=== PATIENT | male | born 1960 | race Caucasian/White ===

== ENCOUNTER → 2018-08-17 15:05 | Outpatient (CLI) | payer OTHER, SELFPAY ==
--- NOTE | 2018-08-17 15:10 | VDLE_ITS ---
Reason For Study: Pain/edema R/O DVT RIGHT GSV is normal. CFV is compressible, spontaneous, phasic, competent and demonstrates normal augmentation. FV is compressible, spontaneous, phasic, competent and demonstrates normal augmentation. POP V is compressible, spontaneous, phasic, competent and demonstrates normal augmentation. T/P Trunk is compressible. PTV is compressible. RT PerV is compressible. Procedure Exam performed in department. A preliminary report was called and/or faxed to Dr. Arriola. Interpretation Summary There is no evidence of right lower extremity deep vein thrombosis. Right greater saphenous vein appears patent and compressible segmentally. Ordering Physician: Donna Arriola Referring Physician: Gwyn Nguyễn Performed By: Lupe Fry RVT
== END ==
PROVIDERS: Family Provider Family Medicine; PCP Family Medicine; Referring Provider Podiatrist; Visit Provider Podiatrist
DX: I82.401 Acute embolism and thrombosis of unspecified deep veins of right lower extremity (principal)
CPT/HCPCS: 93971

== ENCOUNTER → 2019-03-16 10:49 | Outpatient (CLI) | payer OTHER, SELFPAY ==
--- NOTE | 2019-03-16 17:41 | NEURO ---
NCS and/or EMG Patient Report HPI: Patient is a 58-year-old male who presented with the pain in the left elbow as well as numbness and tingling in his left hand fingers which has been noticed by patient for about a month . Patient is hptva-sctv-qjvicqui. 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 Patient sleeps on left side. Physical Exam: No significant tenderness noted at left wrist. Mild soreness at left elbow noted. No significant weakness or sensory deficit noted in left hand fingers or left hand muscles. Findings: 1. Normal nerve conduction studies of left median sensory and motor nerves. 2. Normal Nerve conductions studies of left ulnar sensory and motor nerves. 3. Normal needle examination of right and left upper extremities. Impression: 1. Normal nerve conduction studies and EMG of the left upper extremity. Recommendation: 1. Patient recommended to wear left elbow and hand splints as much as possible. 2. Patient recommended to avoid repetitive left hand movements, heavy lifting as well as sleeping or leaning on left elbow. 3. Patient recommended to keep left arm straight during sleep.
== END ==
PROVIDERS: Family Provider Family Medicine; PCP Family Medicine; Referring Provider Family Medicine; Visit Provider Family Medicine
DX: R20.0 Anesthesia of skin (principal); R20.2 Paresthesia of skin
CPT/HCPCS: 95886; 95909

== ENCOUNTER 2019-06-11 05:26 | Emergency (ER) | payer BC, SELFPAY ==
[2019-06-11 05:27] VITALS: BP 160/110; PULSE 73; RESP 16; TEMP 36.8; O2SAT 98; BMI 42.3
--- NOTE | 2019-06-11 05:51 | CT_ITS ---
HISTORY: RIGHT FLANK PAIN x3 DAYSHX-KIDNEY STONES ADDITIONAL HISTORY: None provided. TECHNIQUE: CT images were obtained of the abdomen and pelvis without IV contrast. Enteric contrast was not given. Number of images including paperwork: 560. A radiation dose optimization technique was used for this scan. COMPARISON: None FINDINGS: Evaluation of the abdominopelvic organs is limited in the absence of contrast. LOWER THORAX: No consolidation or pleural effusion. Dependent atelectasis. 4 x 9 mm subpleural left lower lobe lung nodule. Trace pericardial fluid. LIVER: No concerning focal lesion. GALLBLADDER: No radiopaque calculi. BILE DUCTS: No significant biliary dilatation. SPLEEN: Unremarkable. PANCREAS: Mildly atrophic ADRENAL GLANDS: Unremarkable. KIDNEYS/URETERS: Mild right hydronephrosis secondary to a 3 mm ureteropelvic junction calculus. Nonobstructing 1-3 mm bilateral renal calculi. BOWEL: No bowel obstruction. No significant bowel wall thickening. No localized inflammation. APPENDIX: No evidence of appendicitis. FREE FLUID: No significant free fluid. FREE AIR: None. LYMPH NODES: No pathologic appearing adenopathy. PERITONEUM, RETROPERITONEUM AND MESENTERY: Otherwise unremarkable. VASCULATURE: Unremarkable as imaged. ABDOMINAL WALL: Unremarkable. PELVIS: Unremarkable bladder. OSSEOUS AND SOFT TISSUE STRUCTURES: No acute skeletal findings. Degenerative changes. CT/Abdomen/Pelvis without Cont IMPRESSION: 1. Obstructing right ureteropelvic junction calculus with mild hydronephrosis. 2. Nonobstructing bilateral renal calculi. Individualized dose optimization techniques were used for this CT. at 0647 Reported and signed by: Amber Sandhu MD Electronically Signed: Amber Sandhu MD at 6:47 EST Tel , Service support ,
[2019-06-11 05:58] LABS: Absolute Lymphocyte Count 1.68 X10^3/uL (0.83-4.51); Absolute Neutrophil Count 3.5 X10^3/uL (2.0-7.7); Basophil# 0.06 X10^3/uL; Basophil% 0.9 % (0-1); Eosinophil# 0.23 X10^3/uL; Eosinophils% 3.6 % (0-5); Hematocrit 49.6 % (40-54); Hemoglobin 16.1 g/dL (13.0-16.5); Lymphocyte # 1.68 X10^3/ul (4.0); Lymphocyte % 26.5 % (19-41); Mean Corp Hgb Conc 32.5 g/dL (32-36); Mean Corpuscular Hgb 29.9 pg (27.0-32.0); Mean Corpuscular Volume 92.2 fL (80-94); Mean Platelet Vol. 9.4 fl (6.2-12.0); Monocyte# 0.87 X10^3/uL; Monocyte% 13.7 % (0-10); NRBC Flagged by Analyzer 0 % (0-5); Neutrophil # 3.47 X10^3/uL (2.7-7.7); Neutrophil % 54.8 % (47-70); Platelet Count 211 K/mm3 (150-450); RBC Distribution Width CV 13.6 % (11.6-14.6); RBC Distribution Width SD 46.3 fl (35.1-43.9); Red Blood Count 5.38 M/mm3 (4.6-6.2); White Blood Count 6.3 K/mm3 (4.4-11.0)
--- NOTE | 2019-06-11 06:05 | ED.DCSUM_ITS ---
- ER Visit Summary Date of Service: 06/11/19 Chief Complaint: Flank pain History of Present Illness: The patient is a 58 M who presents with right flank pain that is been getting progressively worse over the past 5 days. Patient states this feels similar to prior kidney stone. Patient describes the pain is sharp. Patient states pain is localized to the right flank. Patient states nothing makes it better or worse. Patient admits to nausea but denies any vomiting. Patient also admits to neck and back pain. Patient denies any fevers or chills. Patient denies any dysuria or hematuria. Physical Examination: Vital signs are stable. Patient is afebrile. Patient is in no acute distress. Oral mucosa is pink and moist. Neck is supple. Trachea is midline. There is no JVD. Heart was regular rate and rhythm. Lungs are clear and equal bilaterally. Abdomen is soft. Bowel sounds are normal. There is no tenderness. There is some mild right CVA tenderness. There is no rebound or guarding noted. Cranial nerves II through XII are intact. There are no focal motor or sensory deficits noted. Test Results: CBC and basic metabolic profile were obtained and were essentially within normal limits. CT scan of the abdomen and pelvis was obtained. There is a 3 mm obstructing stone at the right ureteropelvic junction. There is mild hydronephrosis. This was interpreted by the radiologist and myself. Urinalysis was ordered and does not show any evidence of urinary tract infection.. Emergency Department Course and Treatment: Patient was given IV fluids, Toradol, and Zofran. Patient was feeling better on reevaluation. Patient was given a prescription for a short course of [place]. Patient was instructed to follow-up with Dr. Arzate in 3 to 5 days. Patient understands and is agreeable with the plan. All questions were answered. Disposition: Discharge home Impression: Right ureteral calculus This note was generated with Sendbloom dictation software. It may contain incorrect words, spelling, and punctuation that were not noted in review of the chart prior to signing ED Disposition - Plan for ED Patient: Disposition: Home or Assisted Living Diagnosis: Right ureteral calculus Instructions: KIDNEY STONE w/ Colic Prescriptions: Hydrocodone Bitart/Apap 5-325 [[place] 5MG-325MG] 1 tab PO Q6H PRN PRN 3 Days #10 tab PRN Reason: Pain Prescription Printed Referrals: Skyler Arzate MD [STAFF PHYSICIAN] - 3-5 Days Gwyn Nguyễn MD [Primary Care Provider] - 5-7 Days
[2019-06-11] MEDS: Ketorolac 30 MG/ML Syringe IV (06:12)
[2019-06-11] MEDS: Ondansetron 4 MG/2 ML Vial IV (06:12)
[2019-06-11] MEDS: 0.9% Normal Saline 1,000 ML 250 ML IV (06:12)
[2019-06-11 06:26] LABS: Anion Gap 6 (5-15); BUN 25 mg/dL (7-18); Calcium,Total 9.2 mg/dL (8.5-10.1); Chloride 103 mmol/L (98-107); EST Glomerular Filtration Rate 82 mL/min (>60); Est Glom Filt Rate - Afr Amer 99 mL/min (>60); Glucose 112 mg/dL (74-106); Potassium 4.3 mmol/L (3.5-5.1); Sodium Level 140 mmol/L (136-145)
[2019-06-11 07:07] LABS: Bacteria 0 SEEN /hpf (None Seen); Squamous Epithelial Cells - UA 0 SEEN /hpf (0-5); White Blood Cells 0 SEEN /hpf (0-5)
[2019-06-11 07:22] LABS: Color, Urine Yellow (Yellow); Glucose, Dipstick Normal (Normal); Ketone-Dipstick Negative (Negative); Leukocyte Esterase-Dipstick Negative /ul (Negative); Nitrite-Dipstick Negative (Negative); Occult Blood-Urine 150 /ul (Negative); Protein-Dipstick Negative (Negative); Specific Gravity, Urine 1.015 (1.002-1.030); Urine Bilirubin Dipstick Negative (Negative); Urine Clarity Clear (Clear); Urine Urobilinogen Normal (Normal)
[2019-06-11 07:30] VITALS: RESP 18
[2019-06-11 07:39] LABS: Mucous, Urine 1+ /hpf (<or=2+); Red Blood Cells-Urine 0-5 SEEN /hpf (0-5)
== END 2019-06-11 07:46 | disposition home or self-care (01) ==
PROVIDERS: Emergency Provider Emergency Medicine; PCP Family Medicine
DX: N13.2 Hydronephrosis with renal and ureteral calculous obstruction (principal); Z87.442 Personal history of urinary calculi; I10 Essential (primary) hypertension; F41.9 Anxiety disorder, unspecified
CPT/HCPCS: 74176; 80048; 81001; 85025; 96361; 96374; 96375; 99284; J7030; A4216; J2405

== ENCOUNTER 2019-06-13 13:35 | Emergency (ER) | payer BC, SELFPAY ==
[2019-06-13 13:35] VITALS: BP 146/89; PULSE 101; RESP 16; TEMP 36.8; O2SAT 96; BMI 42.0
--- NOTE | 2019-06-13 14:36 | RAD_ITS ---
STUDY: X-RAY - ABDOMEN/PELVIS REASON FOR EXAM: Male, 58 years old. Abdominal pain, previous kidney stones. TECHNIQUE: Single AP view of the abdomen / pelvis. COMPARISON: None. FINDINGS: Normal visualized lung bases. There is a moderate amount of colonic fecal material. There is a 3.2 mm rounded calcification overlying the transverse process of the right L3 vertebrae. A mid ureteral calculus should be ruled out. There are calcified phleboliths in the pelvis. There are diffuse degenerative changes of the visualized lumbar spine. Mild dextroscoliosis. RAD/Abdomen Single View (Portable) IMPRESSION: Findings suggestive of a 3.2 mm calculus in the midportion of the right ureter. Electronically Signed: Baldomero Harrison, at 15:21 EST , Service support ,
[2019-06-13] MEDS: Ondansetron 4 MG/2 ML Vial IV (14:45)
[2019-06-13] MEDS: 0.9% Normal Saline 1,000 ML 1000 ML IV (14:46)
[2019-06-13] MEDS: Morphine 4 MG/ML Syringe IV (14:48)
[2019-06-13] MEDS: Ketorolac 15 MG/ML Vial IV (14:48)
[2019-06-13 14:56] LABS: Bacteria 0 SEEN /hpf (None Seen); Mucous, Urine 0 SEEN /hpf (<or=2+); Red Blood Cells-Urine 0 SEEN /hpf (0-5); Squamous Epithelial Cells - UA 0 SEEN /hpf (0-5); White Blood Cells 0 SEEN /hpf (0-5)
[2019-06-13 15:02] LABS: Absolute Lymphocyte Count 0.65 X10^3/uL (0.83-4.51); Absolute Neutrophil Count 8.2 X10^3/uL (2.0-7.7); Basophil# 0.05 X10^3/uL; Basophil% 0.5 % (0-1); Hematocrit 50.9 % (40-54); Hemoglobin 16.5 g/dL (13.0-16.5); Lymphocyte # 0.65 X10^3/ul (4.0); Lymphocyte % 6.4 % (19-41); Mean Corp Hgb Conc 32.4 g/dL (32-36); Mean Corpuscular Hgb 29.7 pg (27.0-32.0); Mean Corpuscular Volume 91.5 fL (80-94); Mean Platelet Vol. 9.9 fl (6.2-12.0); Monocyte% 10.8 % (0-10); NRBC Flagged by Analyzer 0 % (0-5); Neutrophil # 8.21 X10^3/uL (2.7-7.7); Neutrophil % 80.9 % (47-70); Platelet Count 226 K/mm3 (150-450); RBC Distribution Width CV 13.5 % (11.6-14.6); RBC Distribution Width SD 45.9 fl (35.1-43.9); Red Blood Count 5.56 M/mm3 (4.6-6.2); White Blood Count 10.2 K/mm3 (4.4-11.0)
[2019-06-13 15:03] LABS: Color, Urine Yellow (Yellow); Glucose, Dipstick Normal (Normal); Ketone-Dipstick Negative (Negative); Leukocyte Esterase-Dipstick Negative /ul (Negative); Nitrite-Dipstick Negative (Negative); Occult Blood-Urine Negative /ul (Negative); Protein-Dipstick Negative (Negative); Urine Bilirubin Dipstick Negative (Negative); Urine Clarity Clear (Clear); Urine Urobilinogen Normal (Normal)
[2019-06-13 15:19] LABS: ALB/GLOB Ratio 0.8 RATIO (0.9-2.4); AST(SGOT) 26 U/L (15-37); Alanine Aminotransfer ALT/SGPT 44 U/L (16-61); Albumin, Serum 3.5 g/dL (3.2-5.0); Alkaline Phosphatase 88 U/L (45-117); Anion Gap 4 (5-15); BUN 19 mg/dL (7-18); BUN/Creat Ratio 16.4 RATIO (10-20); Calcium,Total 9.1 mg/dL (8.5-10.1); Chloride 104 mmol/L (98-107); Creatinine, Serum 1.16 mg/dL (0.70-1.30); EST Glomerular Filtration Rate 69 mL/min (>60); Est Glom Filt Rate - Afr Amer 84 mL/min (>60); Estimated Creatinine Clearance 82.67 ml/min; Globulin 4.4 g/dL (2.2-4.2); Glucose 76 mg/dL (74-106); Lipase 104 U/L (73-393); Potassium 4.4 mmol/L (3.5-5.1); Protein, Total 7.9 g/dL (6.4-8.2); Sodium Level 136 mmol/L (136-145)
--- NOTE | 2019-06-13 16:01 | ED.VISSUMM ---
- ER Visit Summary Date of Service: 06/13/19 Chief Complaint: Right flank pain History of Present Illness: The patient is a [address] Gwyn Valderrama. He reports he has right flank pain that began 6 days ago. Is a sharp pain is 10-10 at worst 9-10 currently. Is worsened by nothing and relieved by nothing. Is taken biking without relief. Reports has been nauseated vomited 3 times today. No blood in his emesis. His last bowel was yesterday. No melena medication. Does report that he has dysuria. No frequency or hematuria. Physical Examination: Vitals: Stable. Afebrile. General: Well-nourished and well-developed. Head: Normocephalic atraumatic. Neck: Supple, no lymphadenopathy. No JVD. Nontender. Cardiovascular: Regular rate and rhythm. No murmurs. Respiratory: No respiratory distress. Clear to auscultation bilaterally. Abdominal: Soft, mild right upper quadrant tenderness palpation, nondistended, normal bowel sounds. No guarding, rebound, or peritoneal signs. Back: Mild right CVA tenderness. Extremities: Nontender, no edema. Skin: Normal color, no rash. Neurologic: Alert and oriented ?3. Cranial nerves II through XII are intact. Normal strength and sensation. Psych: Normal affect. Test Results: CBC shows 7 neutrophils 81, lymphocytes of 6, monocytes of 11. Chem-7 shows a BUN of 19. LFTs are marked for globulin 4.4. UA shows no evidence of infection. Clinical Impression(s) from Imaging Studies KUB X-Ray 06/13/19 14:36 IMPRESSION: Findings suggestive of a 3.2 mm calculus in the midportion of the right ureter. Electronically Signed: Baldomero Harrison, at 15:21 EST , Service support , Emergency Department Course and Treatment: Patient had an IV placed. Is given morphine, Toradol, and Zofran IV. He is resting more comfortably. Treatment Plan: Patient was discussed with Dr. Arzate who asked that he be discharged with instructions to follow-up tomorrow as previously scheduled. Patient will be switched from [place] to Percocet. He will have Zofran added for nausea. Return to the emergency department for any worsening symptoms. Disposition: To home in improved and stable condition. Impression: 1. Right ureterolithiasis. This note was generated with Spacenet dictation software. It may contain incorrect words, spelling, and punctuation that were not noted in review of the chart prior to signing ED Disposition - Plan for ED Patient: Disposition: Home or Assisted Living Instructions: KIDNEY STONE w/ Colic Prescriptions: Oxycodone HCl/Acetaminophen [Percocet 5/325] 1 tab PO Q6H PRN PRN 3 Days #12 tab PRN Reason: Pain Prescription Printed Ondansetron [Zofran Odt] 4 mg PO Q8H PRN PRN #10 tab PRN Reason: Nausea Prescription Printed Referrals: Skyler Arzate MD [STAFF PHYSICIAN] - Keep Remy appointment
[2019-06-13 16:02] VITALS: BP 115/74; PULSE 97; O2SAT 94
== END 2019-06-13 16:18 | disposition home or self-care (01) ==
LOC: ED 14:32
PROVIDERS: Emergency Provider Emergency Medicine; PCP Family Medicine
DX: N20.1 Calculus of ureter (principal); Z87.442 Personal history of urinary calculi; I10 Essential (primary) hypertension
CPT/HCPCS: 74018; 80053; 81001; 83690; 85025; 96361; 96374; 96375; 99284; J7030; A4216; J2405

== ENCOUNTER 2019-06-22 09:36 | Day surgery (SDC) | payer BC, SELFPAY ==
--- NOTE | 2019-06-22 09:37 | RAD_ITS ---
STUDY: X-RAY - ABDOMEN/PELVIS REASON FOR EXAM: Male, 58 years old. PRE-OP. ESWL, RT SIDE PAIN TECHNIQUE: Single AP view of the abdomen / pelvis. COMPARISON: 06/13/2019 FINDINGS: Normal visualized lung bases. There is an unremarkable bowel gas pattern. Again seen is a 4 mm calcific opacity to the right of the spine now at the level of L4 which may represent right ureteral stone. Normal soft tissue structures. Mild dextro scoliosis of the lumbar spine with degenerative disc disease per RAD/Abdomen Single View IMPRESSION: Suspect 4 mm right ureteral stone. Electronically Signed: Adrian Benitez MD at 11:12 EST Tel , Service support ,
[2019-06-22 10:28] VITALS: BP 130/75; PULSE 84; RESP 16; TEMP 36.6; O2SAT 94; BMI 41.8
[2019-06-22] MEDS: Lactated Ringers 1,000 ML 100 ML IV (10:49)
[2019-06-22] MEDS: Ciprofloxacin 400 MG/200 ML BAG 200 MG IV (10:58)
[2019-06-22] MEDS: Ketorolac 15 MG/ML Vial IV (12:52)
--- NOTE | 2019-06-22 12:54 | DCINST_ITS ---
Discharge Diet: Light diet - advance as tolerated Discharge Activity: Return to Normal Activity Call your doctor if your incision/area has: Sudden Increased Bleeding Call your doctor if you observe: Fever of 101 or Higher Suture Line Care: Avoid Pulling/Pushing, Avoid Pinching/Bending Allergies/Adverse Reactions: Allergies cephalexin [From Keflex] Allergy (Verified 06/22/19 10:27) Hives Iodine and Iodide Containing Produc Allergy (Verified 06/22/19 10:27) Swelling Medications to take at Discharge Citalopram Hydrobromide [Citalopram HBr] 40 mg PO DAILY 06/11/19 Enalapril Maleate [Vasotec] 10 mg PO DAILY 06/11/19 Ondansetron [Zofran Odt] 4 mg PO Q8H PRN PRN #10 tab 06/13/19 Cetirizine HCl [Zyrtec] 10 mg PO PRN PRN 06/20/19 Naproxen 500 mg PO BID PRN PRN 06/20/19 Naproxen Sodium [Aleve] 220 mg PO BID 06/20/19 Oxycodone HCl/Acetaminophen [Percocet 5/325] 1 tab PO Q6H PRN PRN 06/20/19 Hydrocodone/Acetaminophen [[place] 5-325 Tablet] 1 each PO Q4H PRN PRN 7 Days #14 tablet 06/22/19 The following prescriptions were given: Hydrocodone/Acetaminophen [[place] 5-325 Tablet] 1 each PO Q4H PRN PRN 7 Days #14 tablet PRN Reason: Pain Score 1-10/10 Transmission Status: Sent to [id number] Primary Care Physician: Gwyn Nguyễn MD [Primary Care Provider] - Test Results: Test results from this visit will be discussed in further detail at your follow- up appointment, if applicable. Please Follow Up With: Skyler Arzate MD When: in 2 weeks, please call to make an appointment.
--- NOTE | 2019-06-22 12:54 | PCM.OPRPT ---
Report of Operation Date of Procedure: 06/22/19 Pre-Operative Diagnosis: Right ureteral calculi Post-Operative Diagnosis: same Surgery/Procedure Performed:: Right extracorporeal shockwave lithotripsy Description of Surgical Findings:: 58-year-old male with a stone in the mid right ureter presents for treatment with shockwave lithotripsy he was taken back to the operating room at the smooth induction of anesthesia he was placed supine on the table we then localized the stone in the F2 focal point of the mesh lithotripter machine and we have commenced with treatment 2000 shockwaves at a rate of 90/min up to 7 to 9 kV a stone it broken up really well we finished up another thousand shockwaves 120/min for a total of 3000 and under x-ray could not see any stone fragment look like it broke up successfully therefore no stent was placed. Type of Anesthesia:: General - Admit VTE Documentation VTE Present on Admission: No VTE Mechan Device Prophylaxis: SCD's
[2019-06-22 13:02] VITALS: BP 130/75; BP 137/96; PULSE 96; RESP 14; TEMP 37.4; O2SAT 92
[2019-06-22 13:15] VITALS: BP 118/86; BP 130/75; PULSE 87; RESP 16; O2SAT 93
[2019-06-22 13:30] VITALS: BP 130/75; BP 132/89; PULSE 86; RESP 16; O2SAT 93
[2019-06-22 13:43] VITALS: BP 130/75; BP 136/92; PULSE 87; RESP 16; TEMP 36.9; O2SAT 94
[2019-06-22 14:39] VITALS: BP 130/75; BP 138/82; PULSE 86; RESP 16; TEMP 36.6; O2SAT 96
== END 2019-06-22 14:40 | disposition home or self-care (01) ==
LOC: SDC 09:38 → AC 09:39
PROVIDERS: PCP Family Medicine; Referring Provider Urology; Visit Provider Urology
PROC: (CPT 50590; principal; 2019-06-22 11:35)
DX: N20.1 Calculus of ureter (principal); I10 Essential (primary) hypertension; F41.9 Anxiety disorder, unspecified; G47.30 Sleep apnea, unspecified; Z87.442 Personal history of urinary calculi
CPT/HCPCS: 00873; 50590; 74018; J7120; J0744; J2405

== ENCOUNTER → 2019-07-05 13:59 | Outpatient (CLI) | payer BC, SELFPAY ==
[2019-06-22 10:28] VITALS: BMI 41.8
--- NOTE | 2019-07-05 14:03 | RAD_ITS ---
STUDY: X-RAY - ABDOMEN/PELVIS REASON FOR EXAM: Male, 58 years old. follow up right sided kidney stone, lithotripsy surgery for it 2 weeks ago TECHNIQUE: Frontal views COMPARISON: June 22, 2019. FINDINGS: There is an unremarkable bowel gas pattern. Colonic fecal retention limiting visualization of the renal shadows. Previously noted calcification adjacent to the L4 segment is not appreciated. There is no demonstrated free abdominal air. Normal soft tissue structures. Mild scoliosis and degenerative vertebral changes. RAD/Abdomen Single View IMPRESSION: Colonic fecal retention limiting visualization of the renal shadows. Electronically Signed: Santy Obando DO at 0:02 EDT Tel [phone], Service support ,
== END ==
PROVIDERS: PCP Family Medicine; Referring Provider Urology; Visit Provider Urology
DX: N20.1 Calculus of ureter (principal)
CPT/HCPCS: 74018

== ENCOUNTER → 2019-09-21 10:56 | Outpatient (CLI) | payer BC, SELFPAY | PROVIDERS: PCP Family Medicine; Referring Provider Family Medicine; Visit Provider Family Medicine | DX: R68.82 Decreased libido (principal) | CPT/HCPCS: 36415; 84403 ==

== ENCOUNTER → 2019-11-01 11:33 | Outpatient (CLI) | payer BC, SELFPAY ==
--- NOTE | 2019-11-01 11:35 | RAD_ITS ---
STUDY: X-RAY - LUMBAR SPINE REASON FOR EXAM: Male, 58 years old. Prior fall. Pain. TECHNIQUE: 5 view(s) of the lumbar spine were obtained. COMPARISON: Abdominal CT dated 06/11/2019 FINDINGS: There is no evidence of fracture or dislocation in the lumbar spine. The vertebral body heights are well-maintained. There are stable moderate degenerative changes. RAD/L/S Spine Min 4 Views IMPRESSION: No fracture or dislocation in the lumbar spine. Stable moderate degenerative change. Electronically Signed: Willie Hinds, at 12:23 EDT Tel , Service support ,
== END ==
PROVIDERS: PCP Family Medicine; Referring Provider Family Medicine; Visit Provider Family Medicine
DX: M54.5 Low back pain (principal)
CPT/HCPCS: 72110

== ENCOUNTER 2021-01-09 22:09 | Emergency (ER) | payer BC, SELFPAY ==
[2021-01-09 22:10] VITALS: BP 138/91; PULSE 85; RESP 12; O2SAT 98
[2021-01-09 22:11] VITALS: BP 149/91; PULSE 84; RESP 16; TEMP 36.1; O2SAT 98; BMI 43.4
--- NOTE | 2021-01-09 22:23 | EKG12_ITS ---
Test Reason : CP Blood Pressure : / mmHG Vent. Rate : 085 BPM Atrial Rate : 085 BPM P-R Int : 176 ms QRS Dur : 106 ms QT Int : 390 ms P-R-T Axes : 069 058 055 degrees QTc Int : 464 ms Normal sinus rhythm Normal ECG Confirmed by ELLY ANTON, WALESKA ([id number]), photographic editor DAMIAN FERGUSON ([id number]) on 01/12/2021 11:37:09 AM Referred By: GRANT Confirmed By:WALESKA SANABRIA MD
[2021-01-09 22:30] LABS: Absolute Lymphocyte Count 1.51 X10^3/uL (0.83-4.51); Absolute Neutrophil Count 4.4 X10^3/uL (2.0-7.7); Basophil# 0.06 X10^3/uL; Basophil% 0.9 % (0-1); Eosinophil# 0.24 X10^3/uL; Eosinophils% 3.4 % (0-5); Hematocrit 49.9 % (40-54); Lymphocyte # 1.51 X10^3/ul (0.83-4.51); Lymphocyte % 21.7 % (19-41); Mean Corp Hgb Conc 32.1 g/dL (32-36); Mean Corpuscular Hgb 29.2 pg (27.0-32.0); Mean Corpuscular Volume 91.1 fL (80-94); Mean Platelet Vol. 9.3 fl (6.2-12.0); Monocyte# 0.76 X10^3/uL; Monocyte% 10.9 % (0-10); NRBC Flagged by Analyzer 0 % (0-5); Neutrophil # 4.36 X10^3/uL (2.7-7.7); Neutrophil % 62.5 % (47-70); Platelet Count 251 K/mm3 (150-450); RBC Distribution Width CV 14.1 % (11.6-14.6); RBC Distribution Width SD 47.6 fl (35.1-43.9); Red Blood Count 5.48 M/mm3 (4.6-6.2)
--- NOTE | 2021-01-09 22:32 | RAD_ITS ---
EXAM: XR CHEST, 1 VIEW : 1960 CLINICAL INDICATION: chest pain TECHNIQUE: Frontal view of the chest. This report was created using [employer] report generation technology. COMPARISON: 03/15/2012 FINDINGS: LUNGS AND PLEURAL SPACES: Unremarkable. No consolidation or edema. No pneumothorax. No effusion. HEART: Unremarkable. Cardiac silhouette not enlarged. MEDIASTINUM: Central airways and mediastinal contour are unremarkable. BONES/JOINTS: Unremarkable. SOFT TISSUES: Unremarkable. RAD/Chest 1 View (Portable) IMPRESSION: No radiographic evidence of acute cardiopulmonary disease. at 2315 Reported and signed by: Garrick Bowling MD Electronically Signed: Garrick Bowling MD at 23:14 EDT Tel , Service support ,
[2021-01-09 22:37] VITALS: O2SAT 100
--- NOTE | 2021-01-09 22:45 | EDS_ITS ---
HPI History of Present Illness Chief Complaint: Chest Pain Informant: patient Onset/Context/Timing Onset: Today Activity at onset: sudden Timing: Intermittent Quality: Positive for Sharp Location: Left Chest Worsened By: Exertion and - (Palpation) Relieved By: - (CPAP machine) Associated Symptoms: Negative for Nausea, Vomiting, Diaphoresis, Dyspnea, Cough, Fever, Lightheadedness, Acid Reflux and Palpitations Narrative Narrative: Patient presents with chest pain that began tonight. Patient states it is over the left side of his chest. Patient states it feels like wldp-kwl-dyumoso and is worse whenever you push on it. Patient states it is also worse with exertion. Patient states he put his CPAP machine on which did seem to help tonight. Patient states it is intermittent last approximately 15 to 20 minutes. Patient denies any nausea or vomiting. Patient denies any diaphoresis. Patient denies any shortness of breath or cough. Patient denies any lightheadedness but states he feels off balance at times. CVD Risk Factors: Positive for Hypertension; Negative for Diabetes, Hypercholesterolemia, Family History 1' </=55 and Smoking PE Risk Factors: Negative for Recent Travel/Surgery, Recent Immobilization, Prior DVT or PE, Cancer and OCP + Smoking + >/=35 PFSH PFSH Medical History (Updated 01/10/21 @ 01:[address] Aureliano Bourne, DO) Arthropathy of knee Hypertension Kidney stones Home Medications citalopram 40 mg PO DAILY 06/11/19 [History Last Taken 06/11/19] enalapril maleate 10 mg PO DAILY 06/11/19 [History Last Taken 06/22/19 05:45 10 MG] cetirizine 10 mg PO PRN PRN 06/20/19 [History Last Taken Unknown] naproxen 500 mg PO BID PRN PRN 06/20/19 [History Last Taken Unknown] Allergy/AdvReac Type Severity Reaction Status Date / Time cephalexin [From Keflex] Allergy Hives Verified 01/09/21 22:14 Iodinated Contrast Media Allergy Swelling Verified 01/09/21 22:14 [CONTRASTS] Iodine and Iodide Containing Allergy Swelling Verified 01/09/21 22:14 Produc Surgical History (Updated 01/09/21 @ 22:[address] Aureliano Bourne, DO) History of tonsillectomy and adenoidectomy Hx of arthroscopy of right knee Social History Smoking Status: Never smoker ROS ROS ED Constitutional Constitutional ED: Denies chills or fever(s) Eyes Eyes: Denies blurry vision or change in vision ENT ENT ED: Denies rhinorrhea or sore throat Cardiovascular Cardiovascular: Reports chest pain; Denies palpitations Respiratory/Chest Respiratory/Chest: Denies cough or dyspnea Gastrointestinal Gastrointestinal: Reports nausea; Denies abdominal pain or vomiting Genitourinary Genitourinary ED: Denies dysuria or hematuria Musculoskeletal Musculoskeletal: Reports back pain; Denies neck pain Integumentary Denies abscess or rash Neurologic Neurologic: Denies headache(s) or weakness Allergic/Immunologic Allergic/Immunologic ED: Denies mouth swelling or urticaria EXAM Physical Exam Const Vital Signs: 01/09/21 22:10 01/09/21 22:11 01/09/21 22:16 Temperature 96.9 F L Temperature Source Temporal Pulse Rate 85 84 Respiratory Rate 12 16 Respiratory Effort Normal Non-Labored Blood Pressure 138/91 H 149/91 H Blood Pressure Mean 106 110 Pulse Ox 98 98 Oxygen Delivery Method Room Air Room Air Oxygen Flow Rate (L/min) 01/09/21 22:37 01/09/21 23:10 01/10/21 00:00 Temperature Temperature Source Pulse Rate 80 77 Respiratory Rate 15 15 Respiratory Effort Blood Pressure 129/78 H 119/86 H Blood Pressure Mean 95 97 Pulse Ox 100 98 99 Oxygen Delivery Method Nasal Cannula Room Air Room Air Oxygen Flow Rate (L/min) 2 01/10/21 01:00 Temperature Temperature Source Pulse Rate 77 Respiratory Rate 15 Respiratory Effort Blood Pressure 124/82 H Blood Pressure Mean 96 Pulse Ox 99 Oxygen Delivery Method Room Air Oxygen Flow Rate (L/min) Positive well nourished, well developed and obese General Appearance ED: well developed Nutritional Appearance: obese HEENT normocephalic and atraumatic Eyes PERRL and EOMs intact bilaterally Neck supple and no JVD Chest Wall palpation of chest normal Resp normal respiratory effort and clear to auscultation bilaterally Effort and Inspection: Negative for respiratory distress Cardio regular rate, regular rhythm and no murmurs GI normal to inspection, nondistended, normoactive bowel sounds, soft to palpation, non-tender and non-distended Extremity normal to inspection General Extremety ED: Negative for edema or tenderness General Extremity: Negative for edema Neuro oriented x3, CN's II-XII intact bilaterally and no sensory deficits noted Sensorium / Orientation: awake and alert Motor Exam: strength 5/5 throughout Psych mental status grossly normal Heart Score History: Slightly/Non-Suspicious ECG: Normal Age: >45 - <65 years Risk Factors: 1 or 2 Risk Factors Troponin: </= Normal Limit Score: 2 MDM MDM MDM Narrative Medical decision making narrative: Patient was given aspirin here. CBC and basic metabolic profile within normal limits. Initial high-sensitivity troponin was normal. 2-hour repeat high-sensitivity troponin was normal. Portable 1 view chest x-ray was obtained. On my interpretation, lung higuera are clear. There is normal cardiac silhouette. Bony thorax is normal. There is no acute process noted. Radiologist also interpreted the x-ray and agrees. EKG was obtained. On my interpretation, it showed a normal sinus rhythm with a rate of 85. NM interval, QRS interval, and QTc intervals were all normal. [place] was normal. There are no acute ST or T wave changes. Patient was feeling better on reevaluation. Patient has a HEART score of 2. Patient was advised this is low risk for acute cardiac event. Patient was instructed to follow-up with his primary care physician in 5 to 7 days. Patient and his understood and were agreeable with the plan. All questions were answered. Lab Data Attestation: I reviewed the patient's lab results. Labs: Laboratory Results - last 24 hr 01/09/21 01/09/21 01/10/21 22:17 22:17 00:16 WBC 7.0 RBC 5.48 Hgb 16.0 Hct 49.9 MCV 91.1 MCH 29.2 MCHC 32.1 RDW Std Deviation 47.6 H RDW Coeff of Urszula 14.1 Plt Count 251 MPV 9.3 Immature Gran % (Auto) 0.600 Neut % (Auto) 62.5 Lymph % (Auto) 21.7 [place] % (Auto) 10.9 H Eos % (Auto) 3.4 Baso % (Auto) 0.9 Absolute Neuts (auto) 4.4 Absolute Lymphs (auto) 1.51 Nucleated RBC % 0 Sodium 139 Potassium 4.7 Chloride 106 Carbon Dioxide 29.0 Anion Gap 4 L BUN 16 Creatinine 1.03 Estim Creat Clear Calc 90.89 Est GFR (MDRD) Af Amer 95 Est GFR (MDRD) Non-Af 79 BUN/Creatinine Ratio 15.5 Glucose 92 Calcium 9.3 Troponin I High Sens 6 7 Radiography Diagnostic Testing: Radiology Impression Chest X-Ray 01/09/21 22:32 IMPRESSION: No radiographic evidence of acute cardiopulmonary disease. at 2315 Reported and signed by: Garrick Bowling MD Electronically Signed: Garrick Bowling MD at 23:14 EDT Tel , Service support , EKG Initial EKG: Attestation: I personally reviewed and interpreted this EKG as follows: Interpretation: Sinus Rhythm (85) and No Acute Injury Pattern Prior EKG tracings: not available for review Discharge Plan Triage Chief Complaint: Chest Pain ED Provider: Aureliano Bourne Dx/Rx/DC Orders Clinical Impression: Chest pain Instructions: ED Chest Pain, Uncertain Cause Prescriptions: No Action enalapril maleate 10 MG tablet 10 mg PO DAILY RF: 0 citalopram 40 mg tablet 40 mg PO DAILY RF: 0 naproxen 500 MG tablet 500 mg PO BID PRN PRN (Reason: Pain Or Fever) RF: 0 cetirizine 10 MG capsule 10 mg PO PRN PRN (Reason: Allergies) RF: 0 Primary Care Provider: Gwyn Nguyễn Referrals: Gwyn Nguyễn MD [Primary Care Provider] - 3-5 Days Disposition Disposition: Home, Self Care Discharge Date/Time: 01/10/21 01:28
[2021-01-09] MEDS: Aspirin 81 MG TAB.CHEW 324 MG PO (22:51)
[2021-01-09 22:52] LABS: Anion Gap 4 (5-15); BUN 16 mg/dL (7-18); BUN/Creat Ratio 15.5 RATIO (10-20); Calcium,Total 9.3 mg/dL (8.5-10.1); Chloride 106 mmol/L (98-107); Creatinine, Serum 1.03 mg/dL (0.70-1.30); EST Glomerular Filtration Rate 79 mL/min (>60); Est Glom Filt Rate - Afr Amer 95 mL/min (>60); Estimated Creatinine Clearance 90.89 ml/min; Glucose 92 mg/dL (74-106); Potassium 4.7 mmol/L (3.5-5.1); Sodium Level 139 mmol/L (136-145); Troponin-I HS 6 pg/mL (3.0-78.0)
[2021-01-09 23:10] VITALS: BP 129/78; PULSE 80; RESP 15; O2SAT 98
[2021-01-10] VITALS: BP 119/86; PULSE 77; RESP 15; O2SAT 99
[2021-01-10 00:55] LABS: Troponin-I HS 7 pg/mL (3.0-78.0)
[2021-01-10 01:00] VITALS: BP 124/82; PULSE 77; RESP 15; O2SAT 99
== END 2021-01-10 01:28 | disposition home or self-care (01) ==
PROVIDERS: Emergency Provider Emergency Medicine; PCP Family Medicine
DX: R07.9 Chest pain, unspecified (principal); I10 Essential (primary) hypertension; E66.9 Obesity, unspecified; Z68.41 Body mass index [BMI] 40.0-44.9, adult; Z79.899 Other long term (current) drug therapy
CPT/HCPCS: 71045; 80048; 84484; 85025; 93005; 99284; A4216

== ENCOUNTER 2021-03-17 08:33 | Outpatient (RCR) | payer BC, SELFPAY | END 2021-03-24 23:59 | LOC: NS 08:33 | PROVIDERS: PCP Family Medicine; Visit Provider Orthopaedic Surgery | DX: Z71.3 Dietary counseling and surveillance (principal); E66.9 Obesity, unspecified; Z68.41 Body mass index [BMI] 40.0-44.9, adult | CPT/HCPCS: 97802 ==

== ENCOUNTER 2021-04-29 18:09 | Outpatient (CLI) | payer BC, SELFPAY | END 2021-04-29 23:59 | disposition short-term general hospital (02) | PROVIDERS: PCP Family Medicine; Referring Provider Family Medicine; Visit Provider Family Medicine | DX: U07.1 COVID-19 (principal) | CPT/HCPCS: 87635; U0003; U0005 ==

== ENCOUNTER 2021-05-27 10:25 | Outpatient (CLI) | payer BC, SELFPAY ==
--- NOTE | 2021-05-27 | CYST_PTH ---
PATIENT: EARLE SOLO Jr. LOC: [facility] U#:[id number] AGE/SX: 60/M ROOM: RE05/27/[address]: Dr. Donna Arriola DPM : 1960 BED: DIS: 05/27/2021 SPEC #: [id number] RECD: 05/27/21 12:40 STATUS: SILVIA MAGNOLIA #: [id number] SHAQUILLE: 05/27/21 00:[address]: Dnona Arriola DEPT: SURGICAL PATHOLOGY RECD BY: Bam Kelly ENTERED: 05/27/21 12:40 SP TYPE: Cyst OTHR DR: Dr. Gwyn Nguyễn MD Tissues: CYST Procedures: Surgery Specimen Level III HEADER OPERATION: Excisional biopsy PRE-OP DIAGNOSIS: Right foot cyst TISSUE SUBMITTED: Right foot cyst MICROSCOPIC DIAGNOSIS Cyst of right foot, biopsy: Mature adipose tissue consistent with angiolipoma. AM:mallorie 05/28/2021 MICROSCOPIC DESCRIPTION Slides are reviewed. GROSS DESCRIPTION Received in fixative is one container labeled with the patient's name and designated right foot cyst. The specimen consists of multiple irregular fragments of pink-yellow soft tissue that in aggregate measure 2 x 1.8 x 0.2 cm. The specimen is totally submitted in one cassette. / AM:malolrie 05/27/2021 TC:1 CPT: 84332
== END 2021-05-27 23:59 | disposition short-term general hospital (02) ==
LOC: LABSPEC 12:33
PROVIDERS: PCP Family Medicine; Visit Provider Podiatrist
DX: D49.2 Neoplasm of unspecified behavior of bone, soft tissue, and skin (principal)
CPT/HCPCS: 88304

== ENCOUNTER 2021-07-23 14:23 | Outpatient (CLI) | payer BC, SELFPAY ==
--- NOTE | 2021-07-23 14:27 | RAD_ITS ---
STUDY: X-RAY - LEFT ELBOW REASON FOR EXAM: Male, 60 years old. INJURY TECHNIQUE: 3 view(s) of the elbow. COMPARISON: July 10, 2012. FINDINGS: There is mild increased hypertrophic appearance of the anterior margin of the ulna olecranon fossa on the lateral view with small osteophyte. No elbow joint effusion or fracture or other specific acute abnormality. Similar chronic accessory ossicle or ossification adjacent to the medial humeral epicondyle. 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 Otherwise stable exam. Electronically Signed: Kaity York MD at 20:48 EDT ,
== END 2021-07-23 23:59 | disposition home or self-care (01) ==
LOC: MTRAD 14:26
PROVIDERS: PCP Family Medicine; Referring Provider Family Medicine; Visit Provider Family Medicine
DX: S59.902A Unspecified injury of left elbow, initial encounter (principal)
CPT/HCPCS: 73080

== ENCOUNTER → 2022-02-05 | Outpatient (CLI) | payer BC, SELFPAY ==
[2022-02-05 13:20] LABS: Anion Gap 8 (5-15); BUN 15 mg/dL (7-18); BUN/Creat Ratio 21.5 RATIO (10-20); Calcium,Total 8.8 mg/dL (8.5-10.1); Chloride 106 mmol/L (98-107); Cholesterol 175 mg/dL (200); EST Glomerular Filtration Rate 123 mL/min (>60); Est Glom Filt Rate - Afr Amer 149 mL/min (>60); Glucose 91 mg/dL (74-106); High Density Lipoprotein 49 mg/dL; Sodium Level 138 mmol/L (136-145); Thyroid Stim Hormone (TSH) 1.71 uIU/mL (0.358-3.74); Triglycerides 96 mg/dL; Very Low Density Lipoprotein 19 mg/dL (5-40)
== END | disposition home or self-care (01) ==
LOC: MTLAB 09:13
PROVIDERS: PCP Family Medicine; Referring Provider Family Medicine; Visit Provider Family Medicine
DX: I10 Essential (primary) hypertension (principal); F41.9 Anxiety disorder, unspecified; N52.9 Male erectile dysfunction, unspecified
CPT/HCPCS: 36415; 80048; 80061; 84403; 84443

== ENCOUNTER → 2022-09-14 | Outpatient (CLI) | payer BC, SELFPAY ==
--- NOTE | 2022-09-14 11:30 | MRI_ITS ---
STUDY: MRI LEFT ANKLE WITHOUT CONTRAST REASON FOR EXAM: Male, 61 years old. Left ankle and heel pain. TECHNIQUE: Standardized fat and water weighted pulse sequences were obtained in all 3 orthogonal planes. COMPARISON: X-ray August 31, 2022 and prior left ankle MRI dated February 2011. FINDINGS: Diffuse superficial soft tissue edema more prominent medially (axial series 4 images 1-8). Normal posterior tibialis tendon. Normal flexor digitorum longus tendon. Normal flexor hallucis longus tendon. Normal peroneus longus and brevis tendons. Normal tibialis anterior tendon. Normal extensor hallucis longus tendon. Normal extensor digitorum longus tendons. Marked thickening of the distal Achilles tendon with an intrasubstance longitudinal partial tear extending anteriorly. Peritendinous edema with pre-Achilles bursitis (axial series 4 images 11-22, sagittal series 7 images 8-18). Minimal thickening of the plantar fascia. Normal plantar calcaneal tubercles. Normal intrinsic muscles of the rearfoot. Normal distal tibiofibular syndesmotic ligamentous complex. Normal lateral ligamentous complex. Normal subtalar ligaments and sinus tarsi. Normal deltoid ligamentous complexes. Normal plantar calcaneonavicular (spring) ligament. Normal tibiotalar articulation. Normal talar dome. Normal subtalar articulations. Normal talonavicular articulation. Normal calcaneocuboid articulation. Normal navicular-cuneiform articulations. MRI/Lower Ext Joint Only (Routine) IMPRESSION: Progression of distal Achilles tendinosis with an intrasubstance partial tear with peritendinous edema and pre-Achilles bursitis. Thickening of the proximal plantar fascia. Diffuse soft tissue swelling. Electronically Signed: Darien Clinton, at 14:54 EDT ,
== END | disposition home or self-care (01) ==
LOC: MRI 10:47
PROVIDERS: PCP Family Medicine; Referring Provider Podiatrist; Visit Provider Podiatrist
DX: M67.962 Unspecified disorder of synovium and tendon, left lower leg (principal)
CPT/HCPCS: 73721

== ENCOUNTER → 2022-11-17 | Outpatient (CLI) | payer BC, SELFPAY ==
[2022-11-17 18:11] LABS: Absolute Lymphocyte Count 1.11 X10^3/uL (0.83-4.51); Absolute Neutrophil Count 4.8 X10^3/uL (2.0-7.7); Basophil# 0.06 X10^3/uL; Basophil% 0.9 % (0-1); Eosinophil# 0.17 X10^3/uL; Eosinophils% 2.5 % (0-5); Hematocrit 48.9 % (40-54); Hemoglobin 15.9 g/dL (13.0-16.5); Lymphocyte # 1.11 X10^3/ul (0.83-4.51); Lymphocyte % 16.4 % (19-41); Mean Corp Hgb Conc 32.5 g/dL (32-36); Mean Corpuscular Hgb 29.5 pg (27.0-32.0); Mean Corpuscular Volume 90.7 fL (80-94); Mean Platelet Vol. 9.6 fl (6.2-12.0); Monocyte# 0.64 X10^3/uL; Monocyte% 9.5 % (0-10); NRBC Flagged by Analyzer 0 % (0-5); Neutrophil # 4.75 X10^3/uL (2.7-7.7); Neutrophil % 70.3 % (47-70); Platelet Count 235 K/mm3 (150-450); RBC Distribution Width CV 14.3 % (11.6-14.6); RBC Distribution Width SD 47.8 fl (35.1-43.9); Red Blood Count 5.39 M/mm3 (4.6-6.2); White Blood Count 6.8 K/mm3 (4.4-11.0)
[2022-11-17 18:37] LABS: ALB/GLOB Ratio 0.9 RATIO (0.9-2.4); AST(SGOT) 19 U/L (15-37); Alanine Aminotransfer ALT/SGPT 57 U/L (16-61); Albumin, Serum 3.5 g/dL (3.2-5.0); Alkaline Phosphatase 82 U/L (45-117); Anion Gap 6 (5-15); BUN 15 mg/dL (7-18); Calcium,Total 9.1 mg/dL (8.5-10.1); Chloride 105 mmol/L (98-107); Creatinine, Serum 0.79 mg/dL (0.70-1.30); EST Glomerular Filtration Rate 107 mL/min (>60); Est Glom Filt Rate - Afr Amer 129 mL/min (>60); Globulin 3.9 g/dL (2.2-4.2); Glucose 144 mg/dL (74-106); Potassium 3.9 mmol/L (3.5-5.1); Protein, Total 7.4 g/dL (6.4-8.2); Sodium Level 137 mmol/L (136-145)
== END | disposition home or self-care (01) ==
LOC: MTLAB 15:57
PROVIDERS: PCP Family Medicine; Referring Provider Family Medicine; Visit Provider Family Medicine
DX: Z01.812 Encounter for preprocedural laboratory examination (principal)
CPT/HCPCS: 36415; 80053; 85025

== ENCOUNTER → 2023-08-24 | Outpatient (CLI) | payer OTHER, SELFPAY ==
[2023-08-24 17:56] LABS: Anion Gap 5 (5-15); BUN 17 mg/dL (7-18); Chloride 110 mmol/L (98-107); Creatinine, Serum 0.81 mg/dL (0.70-1.30); EST Glomerular Filtration Rate 103 mL/min (>60); Est Glom Filt Rate - Afr Amer 125 mL/min (>60); Glucose 150 mg/dL (74-106); Potassium 3.7 mmol/L (3.5-5.1); Sodium Level 141 mmol/L (136-145)
== END | disposition home or self-care (01) ==
LOC: MFPLAB 14:28
PROVIDERS: PCP Family Medicine; Visit Provider Family Medicine
DX: I10 Essential (primary) hypertension (principal)
CPT/HCPCS: 36415; 80048

== ENCOUNTER → 2023-11-07 | Outpatient (CLI) | payer OTHER, SELFPAY ==
[2023-11-07 12:53] LABS: Anion Gap 6 (5-15); BUN 17 mg/dL (7-18); BUN/Creat Ratio 22.6 RATIO (10-20); Calcium,Total 8.9 mg/dL (8.5-10.1); Chloride 104 mmol/L (98-107); Cholesterol 173 mg/dL (200); Creatinine, Serum 0.75 mg/dL (0.70-1.30); EST Glomerular Filtration Rate 112 mL/min (>60); Est Glom Filt Rate - Afr Amer 136 mL/min (>60); Glucose 114 mg/dL (74-106); High Density Lipoprotein 45 mg/dL; Potassium 3.9 mmol/L (3.5-5.1); Sodium Level 135 mmol/L (136-145); Triglycerides 98 mg/dL; Very Low Density Lipoprotein 20 mg/dL (5-40)
== END | disposition home or self-care (01) ==
PROVIDERS: PCP Family Medicine; Referring Provider Family Medicine; Visit Provider Family Medicine
DX: I10 Essential (primary) hypertension (principal)
CPT/HCPCS: 36415; 80048; 80061

== ENCOUNTER → 2024-02-29 | Outpatient (CLI) | payer OTHER, SELFPAY | END | disposition home or self-care (01) | PROVIDERS: PCP Family Medicine; Referring Provider Physician Assistant; Visit Provider Physician Assistant | DX: S39.012A Strain of muscle, fascia and tendon of lower back, initial encounter (principal); S43.401A Unspecified sprain of right shoulder joint, initial encounter | CPT/HCPCS: 72100; 73030 ==

== ENCOUNTER → 2024-06-05 | Outpatient (CLI) | payer OTHER, SELFPAY ==
--- NOTE | 2024-06-05 06:41 | MRI_ITS ---
PROCEDURE: UPPER EXT JOINT ONLY(ROUTINE) REASON FOR EXAM: Limited range of motion, and pain. TECHNIQUE: MRI of the right shoulder without contrast. COMPARISON: None provided. FINDINGS [id number] right acromioclavicular joint degenerative changes are seen, with associated significant joint narrowing. A small amount of fluid is seen within the subacromial/subdeltoid bursa. The right glenohumeral joint demonstrates minimal degenerative changes. No joint effusion is seen. Mild infraspinatus tendinosis is seen. The supraspinatus tendon demonstrates at least moderate tendinosis, small partial thickness tears extending to the inferior surface. No tendon retraction is noted. The long head of the biceps tendon appears intact. No acute osseous signal changes are seen. MRI/Upper Ext Joint Only(Routine) IMPRESSION: 1. Infraspinatus and especially supraspinatus tendinous, also with small partia l-thickness tears of the supraspinatus tendon. 2. Kmcr-vs-vqhcelwh right acromioclavicular joint degenerative changes. 3. Additional findings as described. Reading Location: [id number]
== END | disposition home or self-care (01) ==
LOC: MRI 06:34
PROVIDERS: PCP Family Medicine; Referring Provider Physician Assistant; Visit Provider Physician Assistant
DX: S46.011A Strain of muscle(s) and tendon(s) of the rotator cuff of right shoulder, initial encounter (principal)
CPT/HCPCS: 73221

== ENCOUNTER → 2024-09-21 | Outpatient (CLI) | payer OTHER, SELFPAY ==
[2024-09-21 11:24] LABS: Cholesterol 154 mg/dL (<=200); High Density Lipoprotein 37 mg/dL; Low Density Lipoprotein Calc. 88 mg/dL; Triglycerides 143 mg/dL; Very Low Density Lipoprotein 29 mg/dL (5-40); cholesterol:hdl ratio screen 4.16
[2024-09-21 11:25] LABS: ALB/GLOB Ratio 1.2 RATIO (0.9-2.4); AST(SGOT) 23 U/L (<=37); Alanine Aminotransfer ALT/SGPT 38 U/L (<=46); Albumin, Serum 3.6 g/dL (3.4-4.8); Alkaline Phosphatase 87 U/L (40-129); Anion Gap 11 (5-15); BUN 14 mg/dL (4-19); BUN/Creat Ratio 16.9 RATIO (10-20); Carbon Dioxide 22.9 mmol/L (21.0-32.0); Chloride 101 mmol/L (98-108); Creatinine, Serum 0.85 mg/dL (0.70-1.20); EST Glomerular Filtration Rate 99 (>60); Globulin 2.9 g/dL (2.2-4.2); Glucose 116 mg/dL (70-99); Potassium 4.1 mmol/L (3.3-5.1); Protein, Total 6.4 g/dL (5.9-8.4); Sodium Level 135 mmol/L (133-145); Total Bilirubin 0.58 mg/dL (0.00-1.30)
== END | disposition home or self-care (01) ==
PROVIDERS: PCP Family Medicine; Referring Provider Family Medicine; Visit Provider Family Medicine
DX: I10 Essential (primary) hypertension (principal); M79.89 Other specified soft tissue disorders
CPT/HCPCS: 36415; 80053; 80061

== ENCOUNTER → 2025-03-28 | Outpatient (CLI) | payer OTHER, SELFPAY ==
--- OUTSIDE RECORDS SUMMARY | 2025-03-28 17:37 | XMS RPT_ITS | CCD ---
Author Organization [facility] Care Team Providers Care Cra Name Role Phone Chloé Siddiqui Unavailable Unavailable Jaime LINK, Maricruz [place] Unavailable Unavailab le Maricruz Sandoval LPN Unavailable Unavailab Dr. Gwyn Velazquez Primary Care Provider [phone] Dr. Joseph Spencer Attending Provider FLOR ARRIOLA DPM Attending Unavailable FLOR ARRIOLA DPM Primary Care Unavailable FLOR ARRIOLA DPM Admitting Unavailable Gwyn Nguyễn Referring Unavailable Nguyễn, Gwyn Attending Unavailable Nguyễn, Gwyn Primary Care Unavailable Nguyễn, Gwyn Attending Unavailable Nguyễn, Gwyn Primary Care Unavailable Nguyễn, Gwyn Referring Unavailable Willie Grijalva Attending Unavailable Willie Grijalva Referring Unavailable Gopi, Gwyn Primary Care Unavailable Gopi, Gwyn Referring Unavailable Willie Grijalva Attending Unavailable Nguyễn, Gwyn Primary Care Unavailable Nguyễn, Gwyn Referring Unavailable Willie Grijalva Attending Unavailable Gopi, Gwyn Primary Care Unavailable Gopi, Gwyn Referring Unavailable Willie Grijalva Attending Unavailable Gopi, Gwyn Primary Care Unavailable Willie Grijalva Attending Unavailable Nguyễn, Gwyn Referring Unavailable Nguyễn, Gwyn Primary Care Unavailable Willie Grijalva Attending Unavailable Nguyễn, Gwyn Primary Care Unavailable Nguyễn, Gwyn Referring Unavailable Willie Grijalva Attending Unavailable Gopi, Gwyn Referring Unavailable Nguyễn, Gwyn Primary Care Unavailable Nguyễn, Gwyn Referring Unavailable Willie Grijalva Attending Unavailable Nguyễn, Gwyn Primary Care Unavailable Nguyễn, Gwyn Referring Unavailable Willie Grijalva Attending Unavailable Gopi, Gwyn Primary Care Unavailable Willie Grijalva Attending Unavailable Gopi, Gwyn Primary Care Unavailable Gwyn Nguyễn Referring Unavailable Thomas Aleman Referring Unavailabl e Thomas Aleman Attending Unavailabl e Nguyễn, Gwyn Primary Care Unavailable Wartmann, Christopher Attending UnavailGwyn Hawkins Primary Care Unavailable Willie Grijalva Attending Unavailable Willie Grijalva Referring Unavailable Gwyn Nguyễn Primary Care Unavailable Willie Grijalva Referring Unavailable Willie Grijalva Attending Unavailable Gwyn Nguyễn Primary Care Unavailable Dr. Gwyn Nguyễn MD Primary Care Provider [phone] Willie Grijalva Attending Provider Willie Grijalva Referring Provider Dr. Gwyn Nguyễn MD Referring Provider Dr. Gwyn Nguyễn MD Attending Provider [phone] Allergies Allergy Classification Reported Allergen(s) Allergy Type Date of Onset Reaction(s) Facility (3 sources) cephalexin drug allergy 7 [facility] [employer] [facility] Work Phone: (6 sources) Cephalexin Drug Allergy 1 [facility] (7 sources) Iodinated Contrast Media; Translations: [Iodinated Contrast Media] Allergy to substance 1 [facility] (7 sources) Iodine and Iodide Containing Produc; Translations: [Iodine and Iodide Containing Produc] Allergy to substance 1 [facility] (1 source) Cephalexin Drug Allergy [facility] Repository (1 source) Cephalexin Drug Allergy 5 [facility] Rep[facility] Medications Current Medications Medication Drug Class(es) Dates Sig (Normalized) Sig (Original) cetirizine hydrochloride 10 mg oral capsule (6 sources) Histamine-1 Receptor Antagonist Start: 06-20-2019 Cetirizine 10 MG capsule Active 10 mg PO NEEDED as needed for Allergies June 20, 2019 1:00am citalopram 40 mg oral tablet (6 sources) Serotonin Reuptake Inhibitor Start: 06-11-2019 take 1 tablet by mouth once daily Citalopram 40 mg tablet Active 40 mg PO DAILY June 11, 2019 1:00am enalapril maleate 10 mg oral tablet (6 sources) Angiotensin Converting Enzyme Inhibitor Start: 06-11-2019 take 1 tablet by mouth once daily Enalapril Maleate 10 MG tablet Active 10 mg PO DAILY June 11, 2019 1:00am naproxen 500 mg oral tablet (6 sources) Nonsteroidal Anti-inflammatory Drug Start: 06-20-2019 take 1 tablet by mouth twice daily as needed for pain Naproxen 500 MG tablet Active 500 mg PO TWICE DAILY NEEDED as needed for Pain Or Fever June 20, 2019 1:00am tiZANidine 6 mg oral capsule (1 source) Central alpha-2 Adrenergic Agonist Start: 06-20-2024 take 1 capsule by mouth once at bedtime as needed Tizanidine 6 mg capsule Active 6 mg PO AT BEDTIME as needed for muscle spasticity June 20, 2024 1:00am only after work hours only as needed Completed/Discontinued Medications Medication Drug Class(es) Dates Sig (Normalized) Sig (Original) acetaminophen 325 mg / HYDROcodone bitartrate 5 mg oral tablet (12 sources) Opioid Agonist Start: 06-22-2019 End: 06-29-2019 Hydrocodone-Acetami nophen 1 EACH tablet Discontinued 1 NMA PO EVERY 4 HOURS NEEDED as needed for Pain Score 1-10/10 14 7 June 22, 2019 June 28, 2019 1:00am June 29, 2019 1:09am Start: 06-22-2019 End: 06-29-2019 Hydrocodone-Acetaminophen Di scontinued 1 EACH PO EVERY 4 HOURS NEEDED 14 7 June 22, 2019 June 29, 2019 1:09am Start: 06-11-2019 End: 06-14-2019 Hydrocodone-Acetaminophen 1 TABLET tablet Discontinued 1 {tbl} PO EVERY 6 HOURS NEEDED as needed for Pain 10 3 June 11, 2019 June 13, 2019 1:00am June 14, 2019 1:08am Start: 06-11-2019 End: 06-14-2019 take 1 tablet by mouth every six hours as needed Hydrocodone-Acetaminophen Discontinued 1 TABLET PO EVERY 6 HOURS NEEDED 10 3 June 11, 2019 June 14, 2019 1:08am acetaminophen 325 mg / oxyCODONE hydrochloride 5 mg oral tablet (6 sources) Opioid Agonist Start: 06-13-2019 End: 06-16-2019 Oxycodone-Acetaminophen 1 TABLET tablet Discontinued 1 {tbl} PO EVERY 6 HOURS NEEDED as needed for Pain 12 3 June 13, 2019 June 15, 2019 1:00am June 16, 2019 1:10am Start: 06-13-2019 End: 06-16-2019 take 1 tablet by mouth every six hours as needed Oxycodone-Acetaminophen Discontinued 1 TABLET PO EVERY 6 HOURS NEEDED 12 3 June 13, 2019 June 16, 2019 1:10am cyclobenzaprine hydrochloride 10 mg oral tablet (1 source) Muscle Relaxant Start: 02-29-2024 End: 06-20-2024 take 1 tablet by mouth at bedtime as needed for muscle spasms Cyclobenzaprine 10 mg tablet Discontinued 10 mg PO BEDTIME as needed for muscle spasm February 29, 2024 1:00am June 20, 2024 2:20pm HIGH BP MED, ANXIETY MED (3 sources) Start: 10-18-2016 HIGH BP MED, ANXIETY MED HIGH BP MED, ANXIETY MED Chloé Siddiqui Problems Active Problems Problem Classification Problem Date Documented Da te Episodic/Chronic Calculus of urinary tract (6 sources) Ureteric stone; Translations: [Calculus of ureter] 06-12-2019 Episodic Essential hypertension (7 sources) Benign essential hypertension; Translations: [Essential (primary) hypertension] Onset: 09-25-2024 05-04-2013 Chronic Mood disorders (6 sources) Depressive disorder; Translations: [Depression] 05-04-2013 Chronic Nonspecific chest pain (6 sources) Chest pain; Translations: [Chest pain, unspecified] 01-18-2021 Episodic Other nutritional; endocrine; and metabolic disorders (6 sources) Obesity; Translations: [Obesity, unspecified] 05-04-2013 Chronic Skin and subcutaneous tissue infections (6 sources) Cellulitis of lower leg; Translations: [Cellulitis of right lower limb] 05-22-2020 Episodic Sprains and strains (14 sources) Strain of unspecified muscle(s) and tendon(s) at lower leg level, unspecified leg, sequela; Translations: [Strain of unspecified muscle, fascia and tendon at shoulder and upper arm level, right arm, initial encounter] Onset: 10-18-2016 10-18-2016 Episodic Superficial injury; contusion (1 source) Abrasion, right lower leg, initial encounter; Translations: [Abrasion of right lower leg, initial encounter] Episodic Unclassified (1 source) No current problems or disability 10-18-2016 Unclassified (5 sources) Abrasion, right lower leg, initial encounter 05-22-2020 Unclassified (2 sources) S46.911A - Strain of unspecified muscle, fascia and tendon at shoulder and upper arm level, right arm, initial encounter,S46.011A - Strain of muscle(s) and tendon(s) of the rotator cuff of right shoulder, initial encounter Past or Other Problems Problem Classification Problem Date Documented Da te Episodic/Chronic Other injuries and conditions due to external causes (1 source) Other injury of unspecified body region, initial encounter; Translations: [Other injury of unspecified body region, initial encounter] Onset: 03-09-2024 Episodic Other skin disorders (1 source) Localized swelling, mass and lump, neck; Translations: [Localized swelling, mass and lump, neck] Onset: 11-25-2023 Episodic Results Test Name Value Interpretation Reference Range Facility Anion gap in Serum or Plasma Ordered By: Gwyn Nguyễn on 09-21-2024 Anion gap [Moles/Vol] 11 mmol/L 09-06 [facility] BUN/creatinine ratioOrdered By: Gwyn Nguyễn on 09-21-2024 Urea nitrogen/Creatinine [Mass ratio] 16.9 mg/mg 02-11 [facility] Bilirubin, totalOrdered By: Gwyn Nguyễn on 09-21-2024 Bilirubin [Mass/Vol] 0.58 mg/dL 0.00-1.30 [facility] Calculated very low density lipoprotein (VLDL) cholesterol measurementOrdered By: Gwyn Nguyễn on 09-21-2024 Calculated very low density lipoprotein (VLDL) cholesterol measurement 29 mg/dL [facility] Carbon dioxide, total [Moles /volume] in Central venous bloodOrdered By: Gwyn Nguyễn on 09-21-2024 CO2 [Moles/Vol] 22.9 mmol/L 21.0-32.0 [facility] Chloride assayOrdered By: Baljinder Nguyễn on 09-21-2024 Chloride [Moles/Vol] 101 mmol/L 98-108 [facility] Comprehensive Metabolic Prof ilon 09-21-2024 Albumin [Mass/Vol] 3.6 g/dL Normal 3.4-4.8 [facility] Comment on above: Performed By: #### L 500.1600, L500.4100 #### [facility] [place], [address] Albumin/Globulin [Mass ratio] 1.2 {ratio} Normal 0.9-2.4 [facility] Comment on above: Performed By: #### L 500.4050, L500.4100 #### [facility] [address] [place], [address] ALK PHOS 87 U/L Normal 40-129 [facility] Comment on above: Performed By: #### L 500.4050, L500.4100 #### [facility] [address] [place], [address] ALT [Catalytic activity/Vol] 38 U/L Normal <=46 [facility] Comment on above: Performed By: #### L 500.4050, L500.4100 #### [facility] [address] [place], [address] AST [Catalytic activity/Vol] 23 U/L Normal <=37 [facility] Comment on above: Result Comment: Hemo lysis present, Results??could be affected. ?? Performed By: #### L 500.4050, L500.4100 #### [facility] [address] [place], [address] Bilirubin [Mass/Vol] 0.58 mg/dL Normal 0.00-1.30 [facility] Comment on above: Performed By: #### L 500.4050, L500.4100 #### [facility] [address] [place], [address] BUN/CRE 16.9 RATIO Normal 10-20 [facility] Comment on above: Performed By: #### L 500.4050, L500.4100 #### [facility] [address] [place], [address] Calcium [Mass/Vol] 9.0 mg/dL Normal 7.6-11.0 [facility] Comment on above: Performed By: #### L 500.4050, L500.4100 #### [facility] [address] [place], [address] Chloride [Moles/Vol] 101 mmol/L Normal 98-108 [facility] Comment on above: Performed By: #### L 500.4050, L500.4100 #### [facility] [address] [place], [address] CO2 [Moles/Vol] 22.9 mmol/L Normal 21.0-32.0 [facility] Comment on above: Performed By: #### L 500.4050, L500.4100 #### [facility] [address] [place], [address] Creatinine [Mass/Vol] 0.85 mg/dL Normal 0.70-1.20 [facility] Comment on above: Performed By: #### L 500.4050, L500.4100 #### [facility] [address] [place], [address] GAP 11 Normal 5-15 [facility] Comment on above: Performed By: #### L 500.4050, L500.4100 #### [facility] [address] [place], [address] GFR/1.73 sq M.predicted among non-blacks MDRD (S/P/Bld) [Vol rate/Area] 99 mL/min/{1.73_m2} Normal >60 [facility] Comment on above: Result Comment: mL/m in/1.73m2 CKD-EPI Creatinine Equation (2020) Performed By: #### L 500.4050, L500.4100 #### [facility] [address] [place], [address] Globulin (S) [Mass/Vol] 2.9 g/dL Normal 2.2-4.2 [facility] Comment on above: Performed By: #### L 500.4050, L500.4100 #### [facility] [address] [place], [address] Glucose [Mass/Vol] 116 mg/dL High 70-99 [facility] Comment on above: Performed By: #### L 500.4050, L500.4100 #### [facility] [address] [place], [address] Potassium [Moles/Vol] 4.1 mmol/L Normal 3.3-5.1 [facility] Comment on above: Result Comment: Hemo lysis present, Results??could be affected. ?? Performed By: #### L 500.4050, L500.4100 #### [facility] [address] [place], [address] Sodium [Moles/Vol] 135 mmol/L Normal 133-145 [facility] Comment on above: Performed By: #### L 500.4050, L500.4100 #### [facility] [address] [place], [address] T PROT 6.4 g/dL Normal 5.9-8.4 [facility] Comment on above: Performed By: #### L 500.4050, L500.4100 #### [facility] [address] [place], [address] Urea nitrogen [Mass/Vol] 14 mg/dL Normal 4-19 [facility] Comment on above: Performed By: #### L 500.4050, L500.4100 #### [facility] [address] [place], [address] Glomerular filtration rate ( GFR) estimation/1.73 sq m using serum, plasma, or whole bOrdered By: Gwyn Nguyễn on 09-21-2024 GFR/1.73 sq M.predicted among non-blacks MDRD (S/P/Bld) [Vol rate/Area] 99 mL/min/{1.73_m2} >60 [facility] Comment on above: mL/min/1.73m2 CKD-EP I Creatinine Equation (2020) LDL calc ser/plasOrdered By: Gwyn Nguyễn on 09-21-2024 Cholesterol in LDL [Mass/Vol] 88 mg/dL [facility] Comment on above: Kkhuegiare=160-618 m g/dL & Higher Juvf=179 mg/dL or greater Laboratory - Chemistry and C hemistry - challengeOrdered By: Gwyn Nguyễn on 09-21-2024 AST [Catalytic activity/Vol] 23 U/L <38 [facility] Comment on above: Hemolysis present, R esults could be affected. Lipid Profileon 09-21-2024 CHOL:HDL 4.16 Normal [facility] Comment on above: Performed By: #### L 500.4050, L500.4100 #### [facility] [address] [place], [address] Cholesterol [Mass/Vol] 154 mg/dL Normal <=200 [facility] Comment on above: Result Comment: Chol esterol level, Desirable <200 mg/dL Borderline high cholesterol 200-239 mg/dL High cholesterol >=240 mg/dL Recommendations of the NCEP Adult Treatment Panel for the following risk-cutoff thresholds for the [place] population. Performed By: #### L 500.4050, L500.4100 #### [facility] [address] [place], [address] Cholesterol in HDL [Mass/Vol] 37 mg/dL Low [facility] Comment on above: Result Comment: [place] onal Cholesterol Education Program (NCEP) guidelines: <40 mg/dL: Low HDL-cholesterol (major risk factor for CHD) >= 60 mg/dL: High HDL-cholesterol (negative risk factor for CHD) HDL-cholesterol is affected by a number of factors, e.g. smoking, exercise, hormones, sex and age. Performed By: #### L 500.4050, L500.4100 #### [facility] [address] [place], [address] Cholesterol in LDL [Mass/Vol] 88 mg/dL Normal [facility] Comment on above: Result Comment: Bord bgperc=997-186 mg/dL Higher Uwpj=869 mg/dL or greater Performed By: #### L 500.4050, L500.4100 #### [facility] [address] [place], [address] Cholesterol in VLDL [Mass/Vol] 29 mg/dL Normal 5-40 [facility] Comment on above: Performed By: #### L 500.4050, L500.4100 #### [facility] [address] [place], [address] Triglyceride [Mass/Vol] 143 mg/dL Normal [facility] Comment on above: Result Comment: The drugs N-Acetylcysteine and Metamizole may falsely depress this assay. Normal range: <150 mg/dL Borderline High: 150-199 mg/dL High: 200-499 mg/dL Very High: >500 mg/dL Performed By: #### L 500.4050, L500.4100 #### [facility] [address] [place], [address] Potassium measurement (mass/ volume)Ordered By: Gwyn Nguyễn on 09-21-2024 Potassium (Unsp spec) [Mass/Vol] 4.1 mmol/L 3.3-5.1 [facility] Comment on above: Hemolysis present, R esults could be affected. Screening total cholesterol/ high density lipoprotein (HDL) cholesterol ratioOrdered By: Gwyn Nguyễn on 09-21-2024 Cholesterol.total/Chol esterol in HDL [Mass ratio] 4.16 {ratio} [facility] Serum creatinine measurement (mass/volume)Ordered By: Gwyn Nguyễn on 09-21-2024 Creatinine [Mass/Vol] 0.85 mg/dL 0.70-1.20 [facility] Serum globulin measurementOr dered By: Gwyn Nguyễn on 09-21-2024 Globulin (S) [Mass/Vol] 2.9 g/dL 2.2-4.2 [facility] Serum glucose measurement (m ass/volume)Ordered By: Gwyn Nguyễn on 09-21-2024 Glucose [Mass/Vol] 116 mg/dL High 70-99 [facility] Serum or plasma alanine bolaños otransferase (ALT) measurementOrdered By: Gwyn Nguyễn on 09-21-2024 ALT [Catalytic activity/Vol] 38 U/L <47 [facility] Serum or plasma albumin ai urement (mass/volume)Ordered By: Gwyn Nguyễn on 09-21-2024 Albumin [Mass/Vol] 3.6 g/dL 3.4-4.8 [facility] Serum or plasma albumin/glob ulin mass ratioOrdered By: Gwyn Nguyễn on 09-21-2024 Albumin/Globulin [Mass ratio] 1.2 {ratio} 0.9-2.4 [facility] Serum or plasma alkaline lu sphatase measurementOrdered By: Gwyn Nguyễn on 09-21-2024 ALP [Catalytic activity/Vol] 87 U/L 40-129 [facility] Serum or plasma calcium ai urement (mass/volume)Ordered By: Gwyn Nguyễn on 09-21-2024 Calcium [Mass/Vol] 9.0 mg/dL 7.6-11.0 [facility] Serum or plasma cholesterol in HDL measurement (mass/volume)Ordered By: Gwyn Nguyễn on 09-21-2024 Cholesterol in HDL [Mass/Vol] 37 mg/dL Low >40 [facility] Comment on above: National Cholesterol Education Program (NCEP) guidelines:<40 mg/dL: Low HDL-cholesterol (major risk factor for CHD)>= 60 mg/dL: High HDL-cholesterol (negative risk factor for CHD)HDL-cholesterol is affected by a number of factors, e.g. smoking, exercise, hormones, sex and age. Serum or plasma cholesterol measurement (mass/volume)Ordered By: Gwyn Nguyễn on 09-21-2024 Cholesterol [Mass/Vol] 154 mg/dL <201 [facility] Comment on above: Cholesterol level, D esirable <200 mg/dLBorderline high cholesterol 200-239 mg/dLHigh cholesterol >=240 mg/dLRecommendations of the NCEP Adult Treatment Panel for the following risk-cutoff thresholds for the [place] population. Serum or plasma urea nitroge n measurement (mass/volume)Ordered By: Gwyn Nguyễn on 09-21-2024 Urea nitrogen [Mass/Vol] 14 mg/dL 4-19 [facility] Sodium levelOrdered By: Gwyn Nguyễn on 09-21-2024 Sodium [Moles/Vol] 135 mmol/L 133-145 [facility] Total proteinOrdered By: Yasemin Nguyễn on 09-21-2024 Protein [Mass/Vol] 6.4 g/dL 5.9-8.4 [facility] Triglycerides measurementOrd ered By: Gwyn Nguyễn on 09-21-2024 Triglyceride [Mass/Vol] 143 mg/dL <199 [facility] Comment on above: The drugs N-Acetylcy steine and Metamizole may falsely depress this assay. Normal range: <150 mg/dLBorderline High: 150-199 mg/dLHigh: 200-499 mg/dLVery High: >500 mg/dL Urgent Care Visit Reporton 0 07-18-2024 Urgent Care Visit Report [facility] [address], [address] [place] [address] OFFICE VISIT Date of Service: 07/18/24 MR#: [id number] Acct: [id number] Name: EARLE SOLO Tammy Meza Rep #: [id number] : 1960 Provider: BALJINDER Meyer Age/Sex: 63/M Location: [facility] Status: Signed Intake Vital Signs 03/20/24 13:05 07/18/24 13:09 Height 6 ft 2 in BP 164/80 H Blood Pressure Location Lt brachial Position Sitting Respiration 17 Pulse 107 H Pulse Source NIBP Temp 98.7 F Temp Source Oral Pulse Oximetry (%) 94 Oxygen Delivery Method room air Intake Visit Reasons: 1 M FU/[employer] Chief Complaint: WC f/u [employer]er Required: No Allergies cephalexin (From Keflex) Allergy (Verified 07/18/24 13:09) Hives Iodinated Contrast Media (CONTRASTS) Allergy (Verified 07/18/24 13:09) Swelling Iodine and Iodide Containing Produc Allergy (Verified 07/18/24 13:09) Swelling Have you fallen in the past year?: Yes PFSH Medical History Back pain Neck pain Knee pain Shoulder pain Asthma Lumbar strain Strain of right rotator cuff capsule Right shoulder strain Arthropathy of knee Kidney stones Hypertension Surgical History Hx of arthroscopy of right knee History of tonsillectomy and adenoidectomy Social History Smoking Status: Never smoker HPI HPI Chief Complaint: WC f/u Details: EARLE SOLO, is a 63 M who presents to the office today for recheck status post low back and right shoulder pain developing on 02/27/2024 while at work while repetitively lifting a lot of heavy bags weighing anywhere from 50 to 75 pounds he so states. Localized pain to the right anterior shoulder is still aggravated touch and with any range of motion of the same (low back symptoms resolved). Right anterior shoulder pain is essentially unchanged since [facility]. [id number]. PMH NC. No other associated symptoms and no other alleviating/aggravati ng factors. 06/05/2024 right shoulder MRI reveals small partial-thickness supraspinatus tear otherwise no acute pathology appreciated by radiologist. Since patient's last evaluation here, he has followed up with orthopedics on 06/26/2024 (receiving corticosteroid injection to right shoulder) and follow-up evaluation on 07/17/2024 noting no improvement in symptoms and after discussion with orthopedic surgeon, they will request arthroscopy of right shoulder to evaluate his rotator cuff for possible full-thickness tear. ROS Const Constitutional: No other (As above) Exam Const General: cooperative Orientation: alert and awake Resp Effort Inspection: normal respiratory effort and able to speak in complete sentences Cardio Rate: regular rate Pulses: radial pulses present GI Inspection: normal to inspection, large pannus and obesity Palpation: soft Musc Cervical Spine: normal cervical lordosis and cervical ROM normal Thoracic/Lumbar Spine: thoracic and lumbar spine normal to inspection, and [id number] pain with thoraco-lumbar ROM to all, and no thoracic spinal tenderness and no lumbar spinal tenderness Skin General: no rashes or lesions noted Neuro General: patient alert, patient awake and gait normal Cognition: normal cognition Speech: speech normal Gait: normal gait Motor: muscle tone normal throughout Sensory Exam: no sensory deficits noted Extrem General: normal to inspection, capillary refill normal and normal exam except as noted (R Shoulder: ant. palpable tender) Psych Appearance: grossly normal Mental Status: mental status grossly normal Mood: congruent mood Affect: normal affect Speech and Movement: speech and movement normal Attitude: cooperative Diagnoses Right shoulder strain S46.911A Strain of right rotator cuff capsule S46.011A Lumbar strain S39.012A Assessment and Plan Assessment and Plan (1) Right shoulder strain: Status: Acute (2) Strain of right rotator cuff capsule: Status: Acute (3) Lumbar strain: Status: Acute Plan: See unchanged work restrictions as noted on today's [employer]. Rest, ice applications, home range of motion exercises, and continue naproxen as prescribed by PCP to continue. Continue naproxen and topical lidocaine as needed C9 submitted on 07/17/2024 by orthopedics to request surgery to explore for the possibility of full- thickness rotator cuff tear Follow-up with orthopedics (date tbd). Patient states acknowledging understanding all the above. Coding Level of Care Code Off vis,est,level 2 Clinical Quality Measures Falls Risk Screening/Assistive Devices Have you fallen in the past year?: Yes 07/18/24 1321 Date ___ (more content not included)... Normal [facility] Urgent Care Visit Reporton 0 06-20-2024 Urgent Care Visit Report [facility] [address], [address] [place] [address] OFFICE VISIT Date of Service: 06/20/24 MR#: [id number] Acct: [id number] Name: EDILEARLECHRISTIN Meza Rep #: [id number] : 1960 Provider: BALJINDER Meyer Age/Sex: 63/M Location: [facility] Status: Signed Intake Vital Signs 03/20/24 13:05 06/20/24 13:13 Height 6 ft 2 in BP 122/82 H Position Sitting Pulse 99 Temp 97.6 F L Temp Source Oral Pulse Oximetry (%) 98 Oxygen Delivery Method room air Intake Visit Reasons: BWC 2 WEEK F/U Chief Complaint: WC f/u MRI Accompanied by: Self Is patient in pain?: Yes Pain scale (1-10): 8 Allergies cephalexin (From Keflex) Allergy (Verified 06/20/24 12:59) Hives Iodinated Contrast Media (CONTRASTS) Allergy (Verified 02/26/25 12:59) Swelling Iodine and Iodide Containing Produc Allergy (Verified 06/20/24 12:59) Swelling Medications ???Medication ???Instructions ???Recorded ???Confirmed ???Type citalopram 40 mg tablet 40 mg PO DAILY 06/11/19 06/20/24 H istory enalapril maleate 10 mg tablet 10 mg PO DAILY htn 06/11/19 History cetirizine 10 mg capsule 10 mg PO PRN PRN Allergies 0 06/20/24 History naproxen 500 mg tablet 500 mg PO BID PRN PRN Pain Or Feve r 06/20/19 06/20/24 History tizanidine 6 mg capsule 6 mg PO QHS PRN muscle spasticity 06/20/24 06/20/24 Rx #30 caps Nurse's Note: Patient here for a [facility] f/u. Patient states his shoulder is getting worse. PFSH Medical History Back pain Neck pain Knee pain Shoulder pain Asthma Lumbar strain Strain of right rotator cuff capsule Right shoulder strain Arthropathy of knee Kidney stones Hypertension Surgical History Hx of arthroscopy of right knee History of tonsillectomy and adenoidectomy Social History Smoking Status: Never smoker HPI HPI Chief Complaint: WC f/u MRI Details: EARLE SOLO, is a 63 M who presents to the office today for recheck status post low back and right shoulder pain developing on 02/27/2024 while at work while repetitively lifting a lot of heavy bags weighing anywhere from 50 to 75 pounds he so states. Localized pain to the right anterior shoulder is still aggravated touch and with any range of motion of the same (low back symptoms resolved). Right anterior shoulder pain is essentially unchanged since his last evaluation here except increased range of motion and increased pain. Czvyq-aydv-uxkxfowh. PMH NC. Patient continues naproxen; patient stopped cyclobenzaprine as this gave him insomnia. No other associated symptoms and no other alleviating/aggravati ng factors. 06/05/2024 right shoulder MRI reveals small partial-thickness supraspinatus tear otherwise no acute pathology appreciated by radiologist. ROS Const Constitutional: No other (As above) Exam Const General: cooperative Orientation: alert and awake Resp Effort Inspection: normal respiratory effort and able to speak in complete sentences Cardio Rate: regular rate Pulses: radial pulses present GI Inspection: normal to inspection, large pannus and obesity Palpation: soft Musc Cervical Spine: normal cervical lordosis and cervical ROM normal Thoracic/Lumbar Spine: thoracic and lumbar spine normal to inspection, and uhxaosg-jc-jc pain with thoraco-lumbar ROM to all, and no thoracic spinal tenderness and no lumbar spinal tenderness Skin General: no rashes or lesions noted Neuro General: patient alert, patient awake and gait normal Cognition: normal cognition Speech: speech normal Gait: normal gait Motor: muscle tone normal throughout Sensory Exam: no sensory deficits noted Extrem General: normal to inspection, capillary refill normal and normal exam except as noted (R Shoulder: ant. palpable tender) Psych Appearance: grossly normal Mental Status: mental status grossly normal Mood: congruent mood Affect: normal affect Speech and Movement: speech and movement normal Attitude: cooperative Diagnoses Right shoulder strain S46.911A Strain of right rotator cuff capsule S46.011A Lumbar strain S39.012A Assessment and Plan Assessment and Plan (1) Right shoulder strain: Status: Acute (2) Strain of right rotator cuff capsule: Status: Acute (3) Lumbar strain: Status: Acute Plan: See unchanged work restrictions as noted on today's [employer] 14. Rest, ice applications, home range of motion exercises, and continue naproxen as prescribed by PCP to continue. Stop cyclobenzaprine as it causes patient insomnia. Start tizanidine as prescribed today as needed after work hours only. C9 submitted last evaluation, was approved for orthopedic referral for second opi (more content not included)... Normal [facility] Urgent Care Visit Reporton 0 06-06-2024 Urgent Care Visit Report [facility] [address], [address] [place] [address] OFFICE VISIT Date of Service: 06/06/24 MR#: [id number] Acct: [id number] Name: EDILEARLE Jr. Rep #: [id number] : 1960 Provider: BALJINDER Meyer Age/Sex: 63/M Location: [facility] Status: Signed Intake Vital Signs 03/20/24 13:05 06/06/24 12:57 Height 6 ft 2 in BP 138/82 H Blood Pressure Location Lt brachial Position Sitting Respiration 17 Pulse 98 Pulse Source NIBP Temp 97.9 F Temp Source Oral Pulse Oximetry (%) 94 Oxygen Delivery Method room air Intake Visit Reasons: 1 M FU/[facility] Chief Complaint: WC f/u MRI Ore Buyer Required: No Is patient in pain?: Yes Allergies cephalexin (From Keflex) Allergy (Verified 06/06/24 12:58) Hives Iodinated Contrast Media (CONTRASTS) Allergy (Verified 06/06/24 12:58) Swelling Iodine and Iodide Containing Produc Allergy (Verified 06/06/24 12:58) Swelling Have you fallen in the past year?: No PFSH Medical History Back pain Neck pain Knee pain Shoulder pain Asthma Lumbar strain Strain of right rotator cuff capsule Right shoulder strain Arthropathy of knee Kidney stones Hypertension Surgical History Hx of arthroscopy of right knee History of tonsillectomy and adenoidectomy Social History Smoking Status: Never smoker HPI HPI Chief Complaint: WC f/u MRI Details: EARLE SOLO, is a 63 M who presents to the office today for recheck status post low back and right shoulder pain developing on 02/27/2024 while at work while repetitively lifting a lot of heavy bags weighing anywhere from 50 to 75 pounds he so states. Localized pain to the right anterior shoulder is still aggravated touch and with any range of motion of the same (low back symptoms resolved). Right anterior shoulder pain is essentially unchanged since his last evaluation here except increased range of motion and decreased pain; 06/05/2024 right shoulder MRI reveals small partial- thickness supraspinatus tear otherwise no acute pathology appreciated by radiologist. Agkcc-tuir-funzcoim. PMH NC. Patient continues naproxen and cyclobenzaprine as needed. No other associated symptoms and no other alleviating/aggravati ng factors. ROS Const Constitutional: No other (As above) Exam Const General: cooperative Orientation: alert and awake Resp Effort Inspection: normal respiratory effort and able to speak in complete sentences Cardio Rate: regular rate Pulses: radial pulses present GI Inspection: normal to inspection, large pannus and obesity Palpation: soft Musc Cervical Spine: normal cervical lordosis and cervical ROM normal Thoracic/Lumbar Spine: thoracic and lumbar spine normal to inspection, and zrwevbp-sx-eh pain with thoraco-lumbar ROM to all, and no thoracic spinal tenderness and no lumbar spinal tenderness Skin General: no rashes or lesions noted Neuro General: patient alert, patient awake and gait normal Cognition: normal cognition Speech: speech normal Gait: normal gait Motor: muscle tone normal throughout Sensory Exam: no sensory deficits noted Extrem General: normal to inspection, capillary refill normal and normal exam except as noted (R Shoulder: ant. palpable tender) Psych Appearance: grossly normal Mental Status: mental status grossly normal Mood: congruent mood Affect: normal affect Speech and Movement: speech and movement normal Attitude: cooperative Diagnoses Right shoulder strain S46.911A Strain of right rotator cuff capsule S46.011A Lumbar strain S39.012A Assessment and Plan Assessment and Plan (1) Right shoulder strain: Status: Acute (2) Strain of right rotator cuff capsule: Status: Acute (3) Lumbar strain: Status: Acute Plan: See unchanged work restrictions as noted on today's [employer]. Rest, ice applications, home range of motion exercises, and continue naproxen as prescribed by PCP to continue. Cyclobenzaprine as prescribed to continue as needed. Reviewed radiologist interpretation of right shoulder MRI results from 06/05/2024 with patient in office today, who acknowledged understanding. C9 submitted requesting - orthopedic referral for second opinion at patient request - PT to evaluate and treat - add'l dx: R supraspinatus tear - S46.811A Follow-up with the [facility] on 06/20/2024 for reevaluation, sooner should symptoms worsen or any other concerns develop. Patient states acknowledging understanding all the above. Coding Level of Care Code Off vis,est,level 3 Diagnoses Right shoulder strain S46.911A Strain of right rotator cuff capsule S46.011A Lumbar strain S39.012A Assessment and (more content not included)... Normal [facility] Upper Ext Joint Only(Routine )on 06-05-2024 Upper Ext Joint Only(Routine) [facility] Imaging Services [address] [place] [id number] Upper Ext Joint Only(Routine) MR#: [id number] Acct: [id number] Name: EARLE SOLO JrRosibel Rep #: [id number] : 1960 M 63 From: Ramón Jean Baptiste PCP: Dr. Gwyn Nguyễn MD Status: REG CLI Study: Upper Ext Joint Only(Routine) Date of Exam: 0 06/05/24 Exam# [id number] Ordering Dr: Willie Ovalle PROCEDURE: UPPER EXT JOINT ONLY(ROUTINE) REASON FOR EXAM: Limited range of motion, and pain. TECHNIQUE: MRI of the right shoulder without contrast. COMPARISON: None provided. FINDINGS Ddzy-km-iedovoya right acromioclavicular joint degenerative changes are seen, with associated significant joint narrowing. A small amount of fluid is seen within the subacromial/subdeltoi d bursa. The right glenohumeral joint demonstrates minimal degenerative changes. No joint effusion is seen. Mild infraspinatus tendinosis is seen. The supraspinatus tendon demonstrates at least moderate tendinosis, small partial thickness tears extending to the inferior surface. No tendon retraction is noted. The long head of the biceps tendon appears intact. No acute osseous signal changes are seen. MRI/Upper Ext Joint Only(Routine) IMPRESSION: 1. Infraspinatus and especially supraspinatus tendinous, also with small partial-thickness tears of the supraspinatus tendon. 2. Qeou-he-gtaqgurc right acromioclavicular joint degenerative changes. 3. Additional findings as described. Reading Location: [address] CC: Dr. Gwyn Nguyễn MD; BALJINDER Meeyr Radiology Scheduler: Signed Normal [facility] Urgent Care Visit Reporton 0 04-30-2024 Urgent Care Visit Report [facility] [address], [address] [place] [address] OFFICE VISIT Date of Service: 04/30/24 MR#: [id number] Acct: [id number] Name: EARLE SOLO Rep #: [id number] : 1960 Provider: BALJINDER Meyer Age/Sex: 63/M Location: [facility] Status: Signed Intake Vital Signs 03/20/24 13:05 04/30/24 13:15 Height 6 ft 2 in Weight: 361 lb 2 oz BMI 46.3 BP 156/90 H 140/70 H Blood Pressure Location Lt brachial Rt brachial Position Sitting Sitting Respiration 18 12 Pulse 102 H 95 Pulse Source Monitor NIBP Temp 98.5 F 98.5 F Temp Source Oral Oral Pulse Oximetry (%) 95 100 Oxygen Delivery Method room air room air Intake Visit Reasons: [facility] Chief Complaint: WC f/u RT SHOULDER AND LUMBAR INJURY Ore Buyer Required: No Allergies cephalexin (From Keflex) Allergy (Verified 04/30/24 13:16) Hives Iodinated Contrast Media (CONTRASTS) Allergy (Verified 04/30/24 13:16) Swelling Iodine and Iodide Containing Produc Allergy (Verified 04/30/24 13:16) Swelling Nurse's Note: patient here for WC f/u [facility] Medical History Back pain Neck pain Knee pain Shoulder pain Asthma Lumbar strain Strain of right rotator cuff capsule Right shoulder strain Arthropathy of knee Kidney stones Hypertension Surgical History Hx of arthroscopy of right knee History of tonsillectomy and adenoidectomy Social History Smoking Status: Never smoker HPI HPI Chief Complaint: WC f/u RT SHOULDER AND LUMBAR INJURY Details: EARLE SOLO, is a 63 M who presents to the office today for recheck status post low back and right shoulder pain developing on 02/27/2024 while at work while repetitively lifting a lot of heavy bags weighing anywhere from 50 to 75 pounds he so states. Localized pain to the right anterior shoulder is still aggravated touch and with any range of motion of the same (low back symptoms appear to be resolved). Right anterior shoulder pain is essentially unchanged since his last evaluation here with decreased range of motion and increased pain; still awaiting R shoulder MRI approval. Tdubf-qynt-jpdyhcqq. PMH NC. Patient continues naproxen and cyclobenzaprine as needed. No other associated symptoms and no other alleviating/aggravati ng factors. ROS Const Constitutional: No other (As above) Exam Const General: cooperative Orientation: alert and awake Resp Effort Inspection: normal respiratory effort and able to speak in complete sentences Cardio Rate: regular rate Pulses: radial pulses present GI Inspection: normal to inspection, large pannus and obesity Palpation: soft Musc Cervical Spine: normal cervical lordosis and cervical ROM normal Thoracic/Lumbar Spine: thoracic and lumbar spine normal to inspection, and kiyrwjv-me-ew pain with thoraco-lumbar ROM to all, and no thoracic spinal tenderness and no lumbar spinal tenderness Skin General: no rashes or lesions noted Neuro General: patient alert, patient awake and gait normal Cognition: normal cognition Speech: speech normal Gait: normal gait Motor: muscle tone normal throughout Sensory Exam: no sensory deficits noted Extrem General: normal to inspection, capillary refill normal and normal exam except as noted (R Shoulder: ant. palpable tender) Psych Appearance: grossly normal Mental Status: mental status grossly normal Mood: congruent mood Affect: normal affect Speech and Movement: speech and movement normal Attitude: cooperative Diagnoses Right shoulder strain S46.911A Strain of right rotator cuff capsule S46.011A Lumbar strain S39.012A Assessment and Plan Assessment and Plan (1) Right shoulder strain: Status: Acute (2) Strain of right rotator cuff capsule: Status: Acute (3) Lumbar strain: Status: Acute Plan: See unchanged work restrictions as noted on today's [employer]. Rest, ice applications, home range of motion exercises, and continue naproxen as prescribed by PCP to continue. Cyclobenzaprine as prescribed to continue as needed. Still awaiting approval (without disclaimer) of C9 submitted for MRI right shoulder no contrast, followed by Ortho evaluation if acute pathology appreciated by radiologist on MRI. Continue to hold PT at this time. [facility]-up with [facility] in 1 month for reevaluation, sooner should symptoms worsen or any other concerns develop. Patient states acknowledging understanding all the above. Coding Level of Care Code Off vis,est,level 2 04/30/24 1370 Date Willie KELLOGG Cosigner Signature: Date (more content not included)... Normal [facility] Urgent Care Visit Reporton 1 06-04-2023 Urgent Care Visit Report [facility] [address], [address] [place] [address] OFFICE VISIT Date of Service: 04/03/24 MR#: [id number] Acct: [id number] Name: EARLE SOLO Jr. Rep #: [id number] : 1960 Provider: BALJINDER Meyer Age/Sex: 63/M Location: [facility] Status: Signed Intake Vital Signs 03/20/24 13:05 04/03/24 13:13 Height 6 ft 2 in Weight: 361 lb 2 oz BMI 46.3 BP 156/90 H 140/70 H Blood Pressure Location Lt brachial Lt brachial Position Sitting Sitting Respiration 18 12 Pulse 102 H 96 Pulse Source Monitor NIBP Temp 98.5 F 98.1 F Temp Source Oral Oral Pulse Oximetry (%) 95 100 Oxygen Delivery Method room air room air Intake Visit Reasons: 2 W FU/[facility] Chief Complaint: WC f/u RT SHOULDER AND LUMBAR INJURY Ore Buyer Required: No Is patient in pain?: Yes Pain scale (1-10): 8 Allergies cephalexin (From Keflex) Allergy (Verified 04/03/24 13:14) Hives Iodinated Contrast Media (CONTRASTS) Allergy (Verified 04/03/24 13:14) Swelling Iodine and Iodide Containing Produc Allergy (Verified 04/03/24 13:14) Swelling Have you fallen in the past year?: No Nurse's Note: patient here for 2 week f/u PFSH Medical History Back pain Neck pain Knee pain Shoulder pain Asthma Lumbar strain Strain of right rotator cuff capsule Right shoulder strain Arthropathy of knee Kidney stones Hypertension Surgical History Hx of arthroscopy of right knee History of tonsillectomy and adenoidectomy Social History Smoking Status: Never smoker HPI HPI Chief Complaint: WC f/u RT SHOULDER AND LUMBAR INJURY Details: EARLE SOLO, is a 63 M who presents to the office today for recheck status post low back and right shoulder pain developing on 02/27/2024 while at work while repetitively lifting a lot of heavy bags weighing anywhere from 50 to 75 pounds he so states. Localized pain to the right anterior shoulder is aggravated touch with any range of motion of the same, though low back symptoms appear to be resolved. Right shoulder pain is most prominent at the anterior aspect of the right shoulder he states, noting symptoms are unchanged since his last evaluation here with decreased range of motion and increased pain and therefore is still declining to do physical therapy at this time. Pbpmh-qmxc-rnabznhl. PMH NC. Patient continues naproxen and cyclobenzaprine as needed. No other associated symptoms and no other alleviating/aggravati ng factors. ROS Const Constitutional: No other (As above) Exam Const General: cooperative Orientation: alert and awake Resp Effort Inspection: normal respiratory effort and able to speak in complete sentences Cardio Rate: regular rate Pulses: radial pulses present GI Inspection: normal to inspection, large pannus and obesity Palpation: soft Musc Cervical Spine: normal cervical lordosis and cervical ROM normal Thoracic/Lumbar Spine: thoracic and lumbar spine normal to inspection, and vtaebuc-xb-tv pain with thoraco-lumbar ROM to all, and no thoracic spinal tenderness and no lumbar spinal tenderness Skin General: no rashes or lesions noted Neuro General: patient alert, patient awake and gait normal Cognition: normal cognition Speech: speech normal Gait: normal gait Motor: muscle tone normal throughout Sensory Exam: no sensory deficits noted Extrem General: normal to inspection, capillary refill normal and normal exam except as noted (R Shoulder: ant. palpable tender) Psych Appearance: grossly normal Mental Status: mental status grossly normal Mood: congruent mood Affect: normal affect Speech and Movement: speech and movement normal Attitude: cooperative Diagnoses Right shoulder strain S46.911A Strain of right rotator cuff capsule S46.011A Lumbar strain S39.012A Assessment and Plan Assessment and Plan (1) Right shoulder strain: Status: Acute (2) Strain of right rotator cuff capsule: Status: Acute (3) Lumbar strain: Status: Acute Plan: See unchanged work restrictions as noted on today's [employer]. Rest, ice applications, home range of motion exercises, and continue naproxen as prescribed by PCP to continue. Cyclobenzaprine as prescribed to continue as needed. Awaiting approval withOUT disclaimer of C9 submitted for MRI right shoulder no contrast, followed by Ortho evaluation if acute pathology appreciated by radiologist on MRI. Continue to hold PT at this time. Follow-up with the [facility] in 2 week for reevaluation, sooner should symptoms worsen or any other concerns develop. Patient states acknowledging understanding all the above. Coding Level of Care Code Off vis,est,level 2 (more content not included)... Normal [facility] Urgent Care Visit Reporton 1 05-20-2023 Urgent Care Visit Report [facility] [address], [address] [place] [address] OFFICE VISIT Date of Service: 03/20/24 MR#: [id number] Acct: [id number] Name: EARLE SOLO . Rep #: [id number] : 1960 Provider: BALJINDER Meyer Age/Sex: 63/M Location: [facility] Status: Signed Intake Vital Signs 02/29/24 17:38 03/07/24 12:47 03/20/24 13:05 Height 6 ft 2 in 6 ft 2 in 6 ft 2 in Weight: 361 lb 2 oz BMI 46.3 BP 152/102 H 156/90 H Blood Pressure Location Lt brachial Lt brachial Position Sitting Sitting Respiration 16 18 Pulse 67 102 H Pulse Source Monitor Monitor Temp 98.5 F Temp Source Oral Pulse Oximetry (%) 98 95 Oxygen Delivery Method room air room air Intake Visit Reasons: FU/[facility] Chief Complaint: WC f/u RT SHOULDER AND LUMBAR INJURY Ore Buyer Required: No Is patient in pain?: Yes Allergies cephalexin (From Keflex) Allergy (Verified 03/20/24 13:06) Hives Iodinated Contrast Media (CONTRASTS) Allergy (Verified 03/20/24 13:06) Swelling Iodine and Iodide Containing Produc Allergy (Verified 03/20/24 13:06) Swelling Medications ???Medication ???Instructions ???Recorded ???Confirmed ???Type citalopram 40 mg tablet 40 mg PO DAILY 06/11/19 03/20/24 History enalapril maleate 10 mg tablet 10 mg PO DAILY htn 06/11/19 03/20/24 History cetirizine 10 mg capsule 10 mg PO PRN PRN Allergies 06/20/19 03/20/24 History naproxen 500 mg tablet 500 mg PO BID PRN PRN Pain Or Fever 06/20/19 03/20/24 History cyclobenzaprine 10 mg tablet 10 mg PO HS PRN muscle spasm #14 02/29/24 03/20/24 Rx tabs Nurse's Note: F/U WC. Continues to have right shoulder discomfort now radiating up into neck. Cancelled first PT appointment for today due to discomfort worsening and preferred to be evaluated again. PFSH Medical History Back pain Neck pain Knee pain Shoulder pain Asthma Lumbar strain Strain of right rotator cuff capsule Right shoulder strain Arthropathy of knee Kidney stones Hypertension Surgical History Hx of arthroscopy of right knee History of tonsillectomy and adenoidectomy Social History Smoking Status: Never smoker HPI HPI Chief Complaint: WC f/u RT SHOULDER AND LUMBAR INJURY Details: EARLE SOLO, is a 63 M who presents to the office today for recheck status post low back and right shoulder pain developing on 02/27/2024 while at work while repetitively lifting a lot of heavy bags weighing anywhere from 50 to 75 pounds he so states. Localized pain to the right anterior shoulder is aggravated touch with any range of motion of the same, though low back symptoms appear to be resolved. PMH NC. Right shoulder pain is most prominent at the anterior aspect of the right shoulder he so states, noting symptoms are actually worse since his last evaluation here with decreased range of motion and increased pain and therefore is declining to do physical therapy at this time. Nycwg-aabp-faplatpa. Patient takes naproxen 500 mg twice daily per his PCP, he otherwise takes no medications for pain per his private PCP. Ztqiq-negz-nxiwoojn. No other associated symptoms and no other alleviating/aggravati ng factors. ROS Const Constitutional: No other (As above) Exam Const General: cooperative Orientation: alert and awake Resp Effort Inspection: normal respiratory effort and able to speak in complete sentences Cardio Rate: regular rate Pulses: radial pulses present GI Inspection: normal to inspection, large pannus and obesity Palpation: soft Musc Cervical Spine: normal cervical lordosis and cervical ROM normal Thoracic/Lumbar Spine: thoracic and lumbar spine normal to inspection, and chyzmdy-zl-kf pain with thoraco-lumbar ROM to all, and no thoracic spinal tenderness and no lumbar spinal tenderness Skin General: no rashes or lesions noted Neuro General: patient alert, patient awake and gait normal Cognition: normal cognition Speech: speech normal Gait: normal gait Motor: muscle tone normal throughout Sensory Exam: no sensory deficits noted Extrem General: normal to inspection, capillary refill normal and normal exam except as noted (R Shoulder: ant. palpable tender, +empty can and apley and apprehension) Psych Appearance: grossly normal Mental Status: mental status grossly normal Mood: congruent mood Affect: normal affect Speech and Movement: speech and movement normal Attitude: cooperative Diagnoses Right shoulder strain S46.911A Strain of right rotator cuff capsule S46.011A Lumbar strain S39.012A Assessment and Plan Assessment and Plan (1) Right shoulder strain: Status: Acute (2) Strain of right rotator cuff cap (more content not included)... Normal [facility] Urgent Care Visit Reporton 1 05-07-2023 Urgent Care Visit Report [facility] [address], [address] [place] [address] OFFICE VISIT Date of Service: 03/07/24 MR#: [id number] Acct: [id number] Name: EARLE SOLO Tammy Meza Rep #: [id number] : 1960 Provider: BALJINDER Meyer Age/Sex: 63/M Location: [facility] Status: Signed Intake Vital Signs 02/29/24 17:38 03/07/24 12:34 Height 6 ft 2 in BP 152/102 H 152/82 H Blood Pressure Location Lt brachial Lt brachial Position Sitting Sitting Respiration 16 17 Pulse 67 104 H Pulse Source Monitor NIBP Temp 98.0 F Temp Source Oral Pulse Oximetry (%) 98 96 Oxygen Delivery Method room air room air Intake Visit Reasons: 1 W FU/[facility] GRP Chief Complaint: WC f/u RT SHOULDER AND LUMBAR INJURY Ore Buyer Required: No Is patient in pain?: Yes Allergies cephalexin (From Keflex) Allergy (Verified 03/07/24 12:37) Hives Iodinated Contrast Media (CONTRASTS) Allergy (Verified 03/07/24 12:37) Swelling Iodine and Iodide Containing Produc Allergy (Verified 03/07/24 12:37) Swelling Have you fallen in the past year?: Yes PFSH Medical History (Updated 02/29/24 @ 17:41 by Kay Tran MA) Back pain Neck pain Knee pain Shoulder pain Asthma Lumbar strain Strain of right rotator cuff capsule Right shoulder strain Arthropathy of knee Kidney stones Hypertension Surgical History Hx of arthroscopy of right knee History of tonsillectomy and adenoidectomy Social History Smoking Status: Never smoker HPI HPI Chief Complaint: WC f/u RT SHOULDER AND LUMBAR INJURY Details: EARLE SOLO, is a 63 M who presents to the office today for recheck status post low back and right shoulder pain developing on 02/27/2024 while at work while repetitively lifting a lot of heavy bags weighing anywhere from 50 to 75 pounds he so states. Localized pain to the right anterior shoulder as well as right low back is aggravated touch with any range of motion of the same. PMH NC. Right shoulder pain is most prominent at the anterior aspect of the right shoulder he so states. Mjzqz-qwfx-lupdvdhz. Low back pain is aggravated touch with any range of motion - though much improvement; no caudal or radicular complaints upon questioning. Patient takes naproxen 500 mg twice daily per his PCP, he otherwise takes no medications for pain per his private PCP. Ldypi-ybjk-pgsnpnvh. No other associated symptoms and no other alleviating/aggravati ng factors. ROS Const Constitutional: No other (As above) Exam Const General: cooperative Orientation: alert and awake Resp Effort Inspection: normal respiratory effort and able to speak in complete sentences Cardio Rate: regular rate Pulses: radial pulses present GI Inspection: normal to inspection, large pannus and obesity Palpation: soft Musc Cervical Spine: normal cervical lordosis and cervical ROM normal Thoracic/Lumbar Spine: thoracic and lumbar spine normal to inspection, No surgical scar(s) present, straight leg raise negative bilaterally, pain with thoraco-lumbar ROM with forward flexion (And extension), with lateral flexion to the right and with rotation to the right, paraspinal less tenderness on the right in the mid lumbar and in the lower lumbar, no thoracic spinal tenderness and no lumbar spinal tenderness Skin General: no rashes or lesions noted Neuro General: patient alert, patient awake and gait normal Cognition: normal cognition Speech: speech normal Gait: normal gait Motor: muscle tone normal throughout Sensory Exam: no sensory deficits noted Extrem General: normal to inspection, capillary refill normal and normal exam except as noted (R Shoulder: ant. palpable tender, +empty can and apley and apprehension) Psych Appearance: grossly normal Mental Status: mental status grossly normal Mood: congruent mood Affect: normal affect Speech and Movement: speech and movement normal Attitude: cooperative Diagnoses Right shoulder strain S46.911A Strain of right rotator cuff capsule S46.011A Lumbar strain S39.012A Assessment and Plan Assessment and Plan (1) Right shoulder strain: Status: Acute (2) Strain of right rotator cuff capsule: Status: Acute (3) Lumbar strain: Status: Acute Plan: See REVISED work restrictions as noted on today's [employer] 14. Rest, ice applications, home range of motion exercises, and continue naproxen as prescribed by PCP to continue. Cyclobenzaprine as prescribed today to continue as needed. C9 submitted for PT to evaluate/ treat. Follow-up with the [facility] in 2 week for reevaluation, sooner should symptoms worsen or any other concerns develop. Follow-up with PCP regarding uncontrolled asymptomatic hypertension at this time. Jethro (more content not included)... Normal [facility] Office Visit Reporton 2023 Office Visit Report [facility] [address] [place] [address] OFFICE VISIT Date of Service: 02/29/24 MR#: [id number] Acct: [id number] Patient: EARLE SOLO Jr. Rep #: [id number] : 1960 Provider: BALJINDER Meyer Age/Sex: 63/M Location: [facility] Status: Signed Intake Vital Signs 03/17/21 11:12 Height 6 ft 2 in Intake Visit Reasons: POST ACC/NON DOT/DRUG SCREEN/[facility] GRP Chief Complaint: RT SHOULDER AND LUMBAR INJURY Allergies cephalexin (From Keflex) Allergy (Verified 02/29/24 17:39) Hives Iodinated Contrast Media (CONTRASTS) Allergy (Verified 02/29/24 17:39) Swelling Iodine and Iodide Containing Produc Allergy (Verified 02/29/24 17:39) Swelling Office Procedures [facility] Billing Sheet Testing Post-Accident NON-DOT Drug Screen in [facility]: Yes 03/05/24 0707 Date Willie KELLOGG Cosign Signature: Date (if applicable) CC: Normal [facility] Lumbar Spine 2 or 3 Viewson 02-29-2024 Lumbar Spine 2 or 3 Views [facility] Imaging Services [address] [place] [address] Lumbar Spine 2 or 3 Views MR#: [id number] Acct: [id number] Name: EARLE SOLO Jr. Rep #: [id number] : 1960 M 63 From: Adrian Benitez MD PCP: Dr. Gwyn Nguyễn MD Status: REG CLI Study: Lumbar Spine 2 or 3 Views Date of Exam: Exam# [id number] Ordering Dr: Willie Ovalle [id number] STUDY: X-RAY - LUMBAR SPINE REASON FOR EXAM: Male, 63 years old. strain TECHNIQUE: 2 view(s) of the lumbar spine were obtained. COMPARISON: 11/01/2019 FINDINGS: Normal lumbar lordosis. Mild dextroscoliosis centered at L3. There is a normal alignment of the vertebrae. There is multilevel endplate spondylosis of the lumbar vertebrae. There is multi-level degenerative disc disease with multi-level disc space narrowing. There is multilevel facet hypertrophy. The soft tissue structures are unremarkable. RAD/Lumbar Spine 2 or 3 Views IMPRESSION: Mild dextroscoliosis with degenerative disc disease. MRI may be useful. Electronically Signed: Adrian Benitez MD at 9:08 EST , CC: Dr. Gwyn Nguyễn MD; BALJINDER Meyer Radiology Scheduler: Signed Normal [facility] Shoulder min 2 Viewson 02-28 Shoulder min 2 Views [facility] Imaging Services [address] [place], [place] [id number] Shoulder min 2 Views MR#: [id number] Acct: [id number] Name: EARLE SOLO Jr. Rep #: [id number] : 1960 M 63 From: Santy Obando DO PCP: Dr. Gwyn Nguyễn MD Status: REG CLI Study: Shoulder min 2 Views Date of Exam: 02/29/24 Exam# [id number] Ordering Dr: Willie Ovalle [id number] INDICATION: sprain EXAMINATION/TECHNIQUE : X-RAY - RIGHT XR Shoulder 4 VIEWS COMPARISON: __ FINDINGS: SOFT TISSUES: No soft tissue swelling or gas. No radiopaque foreign body. BONES/JOINTS: No acute fracture or subluxation.. Normal alignment. Preservation of the joint space.. No sclerotic or destructive changes observed. RAD/Shoulder min 2 Views IMPRESSION: No acute bony injury. Electronically Signed: Santy Obando DO at 17:19 EST , CC: Dr. Gwyn Nguyễn MD; BALJINDER Meyer Radiology Scheduler: Signed Normal [facility] Urgent Care Visit Reporton 1 04-30-2023 Urgent Care Visit Report [facility] [address], [address] [place] [address] OFFICE VISIT Date of Service: 02/29/24 MR#: [id number] Acct: [id number] Name: EARLE SOLO Jr. Rep #: [id number] : 1960 Provider: BALJINDER Meyer Age/Sex: 63/M Location: [facility] Status: Signed Intake Vital Signs 03/17/21 11:12 02/29/24 17:38 Height 6 ft 2 in 6 ft 2 in BP 152/102 H Blood Pressure Location Lt brachial Position Sitting Respiration 16 Pulse 67 Pulse Source Monitor Pulse Oximetry (%) 98 Oxygen Delivery Method room air Intake Visit Reasons: BWC/R SHOULDER/LOW BACK INJURY/[facility] GRP Chief Complaint: RT SHOULDER AND LUMBAR INJURY Ore Buyer Required: No Accompanied by: Self Is patient in pain?: Yes Allergies cephalexin (From Keflex) Allergy (Verified 02/29/24 17:39) Hives Iodinated Contrast Media (CONTRASTS) Allergy (Verified 02/29/24 17:39) Swelling Iodine and Iodide Containing Produc Allergy (Verified 02/29/24 17:39) Swelling PFSH Medical History (Updated 02/29/24 @ 17:41 by Kay Tran MA) Back pain Neck pain Knee pain Shoulder pain Asthma Lumbar strain Strain of right rotator cuff capsule Right shoulder strain Arthropathy of knee Kidney stones Hypertension Surgical History Hx of arthroscopy of right knee History of tonsillectomy and adenoidectomy Social History Smoking Status: Never smoker HPI HPI Chief Complaint: RT SHOULDER AND LUMBAR INJURY Details: EARLE SOLO, is a 63 M who presents to the office today for initial evaluation status post low back and right shoulder pain developing on 02/27/2024 while at work while repetitively lifting a lot of heavy bags weighing anywhere from 50 to 75 pounds he so states. Localized pain to the right anterior shoulder as well as right low back is aggravated touch with any range of motion of the same. PMH NC. Right shoulder pain is most prominent at the anterior aspect of the right shoulder he so states. Fwkpl-rnxx-huavfnbu. Low back pain is aggravated touch with any range of motion; no caudal or radicular complaints upon questioning. Patient takes naproxen 500 mg twice daily per his PCP, he otherwise takes no medications for pain per his private PCP. Lsrtw-ojnh-xsmemryt. No other associated symptoms and no other alleviating/aggravati ng factors. ROS Const Constitutional: No other (As above) Exam Const General: cooperative Orientation: alert and awake Resp Effort Inspection: normal respiratory effort and able to speak in complete sentences Cardio Rate: regular rate Pulses: radial pulses present GI Inspection: normal to inspection, large pannus and obesity Palpation: soft Musc Cervical Spine: normal cervical lordosis and cervical ROM normal Thoracic/Lumbar Spine: thoracic and lumbar spine normal to inspection, No surgical scar(s) present, straight leg raise negative bilaterally, pain with thoraco-lumbar ROM with forward flexion (And extension), with lateral flexion to the right and with rotation to the right, paraspinal tenderness on the right in the mid lumbar and in the lower lumbar, no thoracic spinal tenderness and no lumbar spinal tenderness Skin General: no rashes or lesions noted Neuro General: patient alert, patient awake and gait normal Cognition: normal cognition Speech: speech normal Gait: normal gait Motor: muscle tone normal throughout Sensory Exam: no sensory deficits noted Extrem General: normal to inspection, capillary refill normal and normal exam except as noted (R Shoulder: ant. palpable tender, +empty can and apley and apprehension) Psych Appearance: grossly normal Mental Status: mental status grossly normal Mood: congruent mood Affect: normal affect Speech and Movement: speech and movement normal Attitude: cooperative Coding Level of Care Code Off vis,new,level 4 Diagnoses Right shoulder strain S46.911A Strain of right rotator cuff capsule S46.011A Lumbar strain S39.012A Assessment and Plan Assessment and Plan (1) Right shoulder strain: Status: Acute (2) Strain of right rotator cuff capsule: Status: Acute (3) Lumbar strain: Status: Acute Plan: Right shoulder and lumbar radiographs taken today reveal no acute osseous pathology per my review, pending radiologist interpretation time patient discharge. Work restrictions as noted on today's [employer]. Rest, ice applications, home range of motion exercises, and continue naproxen as prescribed by PCP. Cyclobenzaprine as prescribed today as needed after work hours only. Follow-up with the [facility] in 1 week for reevaluation, sooner should symptoms worsen or any other concerns develop. Follow-up with PCP regarding uncontrolled as (more content not included)... Normal [facility] Basic Metabolic Profile (BMP )on 11-07-2023 BUN/CRE 22.6 RATIO High 10-20 [facility] Comment on above: Performed By: #### L 500.2500, L500.4100 #### [facility] [address] [place], [address] CA,Total 8.9 mg/dL Normal 8.5-10.1 [facility] Comment on above: Performed By: #### L 500.2500, L500.4100 #### [facility] [address] [place], [address] Chloride [Moles/Vol] 104 mmol/L Normal 98-107 [facility] Comment on above: Performed By: #### L 500.2500, L500.4100 #### [facility] [address] [place], [address] CO2 [Moles/Vol] 25.0 mmol/L Normal 21.0-32.0 [facility] Comment on above: Performed By: #### L 500.2500, L500.4100 #### [facility] [address] [place], [address] Creatinine [Mass/Vol] 0.75 mg/dL Normal 0.70-1.30 [facility] Comment on above: Result Comment: The validity of the calculated GFR GFRAA in patients over 70 years has not been determined. Clinical correlation is essential. Performed By: #### L 500.2500, L500.4100 #### [facility] [address] [place], [address] EST GFR - AA 136 mL/min Normal >60 [facility] Comment on above: Result Comment: Afri can [place] GFR Calc Performed By: #### L 500.2500, L500.4100 #### [facility] [address] [place], [address] GAP 6 Normal 5-15 [facility] Comment on above: Performed By: #### L 500.2500, L500.4100 #### [facility] [address] [place], [address] GFR/1.73 sq M.predicted among non-blacks MDRD (S/P/Bld) [Vol rate/Area] 112 mL/min/{1.73_m2} Normal >60 [facility] Comment on above: Result Comment: Non- GFR Calc Performed By: #### L 500.2500, L500.4100 #### [facility] [address] [place], [address] Glucose [Mass/Vol] 114 mg/dL High 74-106 [facility] Comment on above: Result Comment: Fast ing Glucose result from 100 to 125 mg/dL suggests IMPAIRED HOMEOSTASIS per A.D.A. criteria. Performed By: #### L 500.2500, L500.4100 #### [facility] [address] [place], [address] Potassium [Moles/Vol] 3.9 mmol/L Normal 3.5-5.1 [facility] Comment on above: Performed By: #### L 500.2500, L500.4100 #### [facility] [address] [place], [address] Sodium [Moles/Vol] 135 mmol/L Low 136-145 [facility] Comment on above: Performed By: #### L 500.2500, L500.4100 #### [facility] [address] [place], [address] Urea nitrogen [Mass/Vol] 17 mg/dL Normal 7-18 [facility] Comment on above: Performed By: #### L 500.2500, L500.4100 #### [facility] [address] [place], [address] Lipid Profileon 11-07-2023 Cholesterol [Mass/Vol] 173 mg/dL Normal 200 [facility] Comment on above: Result Comment: <200 mg/dL Desirable 200-240 mg/dL Borderline >240 mg/dL High Risk Performed By: #### L 500.2500, L500.4100 #### [facility] [address] [place], [address] Cholesterol in HDL [Mass/Vol] 45 mg/dL Normal [facility] Comment on above: Result Comment: The drugs N-Acetylcysteine and Metamizole may falsely depress this assay. Reference Range HDL <40 mg/dL Low HDL Cholesterol HDL >or= 60 mg/dL High HDL Cholesterol Performed By: #### L 500.2500, L500.4100 #### [facility] [address] [place], [address] Cholesterol in LDL [Mass/Vol] 108 mg/dL Normal 0-130 [facility] Comment on above: Performed By: #### L 500.2500, L500.4100 #### [facility] [address] [place], [address] Cholesterol in VLDL [Mass/Vol] 20 mg/dL Normal 5-40 [facility] Comment on above: Performed By: #### L 500.2500, L500.4100 #### [facility] [address] [place], [address] Triglyceride [Mass/Vol] 98 mg/dL Normal [facility] Comment on above: Result Comment: The drugs N-Acetylcysteine and Metamizole may falsely depress this assay. Serum Triglycerides Reference Interval Normal <150 mg/dL Borderline high 150 - 199 mg/dL High 200 - 499 mg/dL Very High > or = 500 mg/dL Performed By: #### L 500.2500, L500.4100 #### [facility] [address] [place], [address] Basophil percentageOrdered B y: Gwyn Nguyễn on 08-24-2023 Chloride [Moles/Vol] 110 mmol/L 98-107 [facility] Glucose [Mass/Vol] 150 mg/dL 74-106 [facility] Comment on above: Fasting Glucose resu lt greater than or equal to 126 mg/dL suggests DIABETES MELLITUS per A.D.A. criteria. Potassium [Moles/Vol] 3.7 mmol/L 3.5-5.1 [facility] Sodium [Moles/Vol] 141 mmol/L 136-145 [facility] Laboratory - Chemistry and C hemistry - challengeOrdered By: Gwyn Nguyễn on 08-24-2023 CO2 [Moles/Vol] 26.0 mmol/L 21.0-32.0 [facility] Urea nitrogen/Creatinine [Mass ratio] 21.0 mg/mg 10-20 [facility] No Panel InformationOrdered By: Gwyn Nguyễn on 08-24-2023 Estimated GFR (MDRD) Amer 125 mL/min >60 [facility] Comment on above: GFR Calc Estimated GFR (MDRD) Non-Af Amer 103 mL/min >60 [facility] Comment on above: Non- GFR Calc Serum or plasma calcium ai urement (mass/volume)Ordered By: Gwyn Nguyễn on 08-24-2023 Calcium [Mass/Vol] 9.0 mg/dL 8.5-10.1 [facility] Serum or plasma creatinine m easurement (mass/volume)Ordered By: Gwyn Nguyễn on 08-24-2023 Creatinine [Mass/Vol] 0.81 mg/dL 0.70-1.30 [facility] Comment on above: The validity of the calculated GFR & GFRAA in patients over 70 years has not been determined. Clinical correlation is essential. Serum or plasma urea nitroge n measurement (mass/volume)Ordered By: Gwyn Nguyễn on 08-24-2023 Urea nitrogen [Mass/Vol] 17 mg/dL 7-18 [facility] Thin prep Papanicolaou smear with manual screeningOrdered By: Gwyn Nguyễn on 08-24-2023 Thin prep Papanicolaou smear with manual screening 5 5-15 [facility] OPERATIVE PROCEDURESon 12-08 OPERATIVE PROCEDURES [facility] OPERATIVE REPORT NAME ACCOUNT SEX AGE ADMIT DISCHARGE PT MED. RECORD# NUMBER DATE DATE TYPE EARLE SOLO [id number] M 62 11/26/22 2 [id number] ROOM: [facility] DATE OF : 1960 DICTATING PHYSICIAN: Flor Arriola DATE OF SURGERY: November 26, 2022 SURGEON: Flor Arriola DPM MANUFACTURING FINANCE MANAGER: None. ANESTHESIOLOGIST: Eron Aleman MD ANESTHETIC: Spinal. PREOPERATIVE DIAGNOSIS: Painful retrocalcaneal exostosis of left heel with Achilles tendinosis. POSTOPERATIVE DIAGNOSIS: Painful retrocalcaneal exostosis of left heel with Achilles tendinosis. OPERATION PERFORMED: Excision of left retrocalcaneal exostosis with repair and reattachment of the Achilles tendon. COMPLICATIONS: None. ESTIMATED BLOOD LOSS: 10 mL. HEMOSTASIS: Pneumatic cast tourniquet at 300 mmHg and electrocautery. DESCRIPTION OF OPERATION: The patient was brought into the operating room and placed on the operating table in a lateral position with the patient laying on the right side following spinal anesthesia provided by Dr. Carlos Manuel Aleman. A pneumatic calf tourniquet was placed about the patient's left calf, and the patient was noted to have all bony prominences well padded. A pillow was placed between the knees and ankles. The foot, ankle and lower leg were scrubbed, prepped and draped in the usual aseptic manner. The tourniquet was inflated to 300 mmHg. Attention was directed to the posterior aspect of the left calcaneus, where approximately a 6 cm linear longitudinal incision was made directly posterior to the calcaneus at the midline. The incision was deepened through sharp and blunt dissection. Care was taken to retract all vital neurovascular structures. All superficial bleeding vessels were Page 1 of 3 EARLE SOLO Operative Report EARLE SOLO : 1960 cauterized and ligated as necessary. There were a mild amount of varicosities, and venous oozing was noted throughout the entire procedure. The peritenon was incised in a linear longitudinal fashion, and it was retracted. Next, a linear longitudinal incision was performed, and the Achilles tendon was split in half. It was detached from the calcaneus at the distal aspect and retracted. There were some calcifications noted within the distal portion of the Achilles tendon that was removed sharply. This did leave a deficit. The posterior aspect of the calcaneus had a significant amount of scar tissue and somewhat soft bone. Utilizing the sagittal saw, some of the bone was removed as well as with a rongeur. The wound was flushed with copious amounts of normal sterile saline throughout the entire procedure. Next, following debridement of the Achilles tendon, the Arthrex Achilles SpeedBridge system was utilized. Four absorbable anchors were placed in a square orientation as the ferryboat pilot holes were drilled in a posterior to anterior fashion within the calcaneus. The anchors were placed, and the Achilles tendon was repaired and re-anchored back to the posterior aspect of the calcaneus.It was a little tight and left the patient in a slightly plantar flexed position secondary to the amount of tendon that had to be resected. The central aspect of the Achilles was reapproximated and coapted utilizing 3-0 Vicryl sutures. Next, the Arthrex Amnion graft was placed over top of the Achilles tendon, and the peritenon was reapproximated and coapted utilizing 3-0 Vicryl sutures. The subcutaneous skin was reapproximated and coapted utilizing 3-0 Vicryl sutures, and the skin was reapproximated and coapted utilizing 3-0 Vicryl sutures. Upon completion of the procedure, the sterile compressive dressing consisting of an Arthrex JumpStart dressing and 4x4s as well as ABD pads and 4-inch Kerlix was applied to the lower leg and foot. Next, a well-padded posterior splint was applied and secured utilizing Ze wraps. The patient tolerated the procedure and anesthesia well, and he was transferred to the recovery room with vital signs stable and vascular status intact to all toes of the left foot. The pneumatic ankle tourniquet had obviously been deflated before the splint was put in place. The patient will be admitted to the [facility] third floor for 23-hour observation. The patient's body habitus and narrow airway caused concern for anesthesia. Thus, the patient had to undergo a spinal. The patient also has sleep apnea, and observation is necessary for his safety. By tomorrow morning, the patient should be able to use a walking aid to enter his home, but with his spinal block that is not possible today. The dressing is to be kept clean, dry and intact. Avoid excessive ambulation. The patient should only be ambulating once he has sensation and movement about his legs. Strict nonweightbearing to the left foot. Rest, ice and elevate the left foot and take the pain medication as recommended. Follow up with Dr. Zeinab suarez (more content not included)... Normal [facility] FOOT 2 VIEW LTon 11-26-2022 FOOT 2 VIEW [place] [id number] [place] [address] Patient: EARLE SOLO Phone#: : 1960 Age: 62 Gender: M Pt. Type: Out Account: [id number] Location: [facility] Ordering: FLOR ARRIOLA Exam Date: 11/26/2022/12:27 Family Phys: Charge Code: 941051 Physician: [place] Order #: [id number] Dose#: PROCEDURE: X-RAY FOOT LT 2 VIEWS COMPARISON: None. INDICATIONS: Postoperative imaging. FINDINGS: Splint material somewhat limits evaluation. BONES: Small calcaneal spur measuring 0.4 cm. An os trigonum is present measuring 0.8 x 0.7 cm. SOFT TISSUES: Negative. No visible soft tissue swelling. EFFUSION: None visible. OTHER: Negative. CONCLUSION: 1. Small calcaneal spur Dictated by: Jackelin Najera MD on 11/26/2022 at 12:46 Approved by: Jackelin Najera MD on 11/26/2022 at 12:50 Normal [facility] Absolute lymphocyte countOrd ered By: Gwyn Nguyễn on 11-17-2022 Lymphocytes Auto (Unsp spec) [#/Vol] 1.11 10*3/uL 0.83-4.51 [facility] Basophil percentageOrdered B y: Gwyn Nguyễn on 11-17-2022 Basophils/100 WBC (Bld) 0.9 % 0-1 [facility] Bilirubin [Mass/Vol] 0.60 mg/dL 0.20-1.00 [facility] Comment on above: For patients on eltr ombopag therapy, use of Dimension [place] TBIL is not recommended. Chloride [Moles/Vol] 105 mmol/L 98-107 [facility] Eosinophils/100 WBC (Bld) 2.5 % 0-5 [facility] Glucose [Mass/Vol] 144 mg/dL 74-106 [facility] Comment on above: Fasting Glucose resu lt greater than or equal to 126 mg/dL suggests DIABETES MELLITUS per A.D.A. criteria. Neutrophils (Bld) [#/Vol] 4.8 10*3/uL 2.0-7.7 [facility] Neutrophils/100 WBC (Bld) 70.3 % 47-70 [facility] Potassium [Moles/Vol] 3.9 mmol/L 3.5-5.1 [facility] Protein [Mass/Vol] 7.4 g/dL 6.4-8.2 [facility] Sodium [Moles/Vol] 137 mmol/L 136-145 [facility] WBC (Bld) [#/Vol] 6.8 10*3/uL 4.4-11.0 [facility] Blood erythrocytes count (nu mber/volume)Ordered By: Gwyn Nguyễn on 11-17-2022 RBC (Bld) [#/Vol] 5.39 10*6/uL 4.6-6.2 [facility] Blood hemoglobin measurement (mass/volume)Ordered By: Gwyn Nguyễn on 11-17-2022 Hemoglobin (Bld) [Mass/Vol] 15.9 g/dL 13.0-16.5 [facility] Blood lymphocytes/100 leukoc ytesOrdered By: Gwyn gNuyễn on 11-17-2022 Lymphocytes/100 WBC (Bld) 16.4 % 19-41 [facility] Blood monocytes/100 leukocyt esOrdered By: Gwyn Nguyễn on 11-17-2022 Monocytes/100 WBC (Bld) 9.5 % 0-10 [facility] Blood platelet mean volumeOr dered By: Gwyn Nguyễn on 11-17-2022 Platelet mean volume (Bld) [Entitic vol] 9.6 fL 6.2-12.0 [facility] Determination of erythrocyte mean corpuscular volume (MCV)Ordered By: Gwyn Nguyễn on 11-17-2022 MCV (RBC) [Entitic vol] 90.7 fL 80-94 [facility] Hematocrit Auto (Bld) [Volum e fraction]Ordered By: Gwyn Nguyễn on 11-17-2022 Hematocrit (Bld) [Volume fraction] 48.9 % 40-54 [facility] Laboratory - Chemistry and C hemistry - challengeOrdered By: Gwyn Nguyễn on 11-17-2022 ALP [Catalytic activity/Vol] 82 U/L 45-117 [facility] ALT [Catalytic activity/Vol] 57 U/L 16-61 [facility] CO2 [Moles/Vol] 26.0 mmol/L 21.0-32.0 [facility] Globulin (S) [Mass/Vol] 3.9 g/dL 2.2-4.2 [facility] Urea nitrogen/Creatinine [Mass ratio] 19.0 mg/mg 10-20 [facility] Laboratory - Hematology and Cell countsOrdered By: Gwyn Nguyễn on 11-17-2022 Erythrocyte distribution width (RBC) [Entitic vol] 47.8 fL 35.1-43.9 [facility] Erythrocyte distribution width (RBC) [Ratio] 14.3 % 11.6-14.6 [facility] Immature granulocytes/100 WBC (Bld) 0.400 % 0.0-0.9 [facility] Comment on above: IG% - Immature Granu locytes (promyelocytes, myelocytes and metamyelocytes) > 1% indicates that a LEFT SHIFT is Present. MCH (RBC) [Entitic mass] 29.5 pg 27.0-32.0 [facility] Nucleated RBC/100 WBC (Bld) [Ratio] 0 % 0-5 [facility] MCHC Auto (RBC) [Mass/Vol]Or dered By: Gwyn Nguyễn on 11-17-2022 MCHC (RBC) [Mass/Vol] 32.5 g/dL 32-36 [facility] No Panel InformationOrdered By: Gwyn Nguyễn on 11-17-2022 Estimated GFR (MDRD) Amer 129 mL/min >60 [facility] Comment on above: GFR Calc Estimated GFR (MDRD) Non-Af Amer 107 mL/min >60 [facility] Comment on above: Non- GFR Calc Platelets bldOrdered By: Yasemin Nguyễn on 11-17-2022 Platelets (Bld) [#/Vol] 235 10*3/uL 150-450 [facility] Serum or plasma albumin ai urement (mass/volume)Ordered By: Gwyn Nguyễn on 11-17-2022 Albumin [Mass/Vol] 3.5 g/dL 3.2-5.0 [facility] Serum or plasma albumin/glob ulin mass ratioOrdered By: Gwyn Nguyễn on 11-17-2022 Albumin/Globulin [Mass ratio] 0.9 {ratio} 0.9-2.4 [facility] Serum or plasma calcium ai urement (mass/volume)Ordered By: Gwyn Nguyễn on 11-17-2022 Calcium [Mass/Vol] 9.1 mg/dL 8.5-10.1 [facility] Serum or plasma creatinine m easurement (mass/volume)Ordered By: Gwyn Nguyễn on 11-17-2022 Creatinine [Mass/Vol] 0.79 mg/dL 0.70-1.30 [facility] Comment on above: The validity of the calculated GFR & GFRAA in patients over 70 years has not been determined. Clinical correlation is essential. Serum or plasma urea nitroge n measurement (mass/volume)Ordered By: Gwyn Nguyễn on 11-17-2022 Urea nitrogen [Mass/Vol] 15 mg/dL 7-18 [facility] Thin prep Papanicolaou smear with manual screeningOrdered By: Gwyn Nguyễn on 11-17-2022 Thin prep Papanicolaou smear with manual screening 19 U/L 15-37 [facility] Thin prep Papanicolaou smear with manual screening 6 5-15 [facility] Basophil percentageon 2021 Chloride [Moles/Vol] 106 mmol/L 98-107 [facility] Work Phone: Cholesterol [Mass/Vol] 175 mg/dL <200 [facility] Work Phone: Comment on above: <200 mg/dL Desirable 200-240 mg/dL Borderline >240 mg/dL High Risk Glucose [Mass/Vol] 91 mg/dL 74-106 [facility] Work Phone: Potassium [Moles/Vol] 4.0 mmol/L 3.5-5.1 [facility] Work Phone: Sodium [Moles/Vol] 138 mmol/L 136-145 [facility] Work Phone: Testosterone [Mass/Vol] 348.14 ng/dL [facility] Work Phone: Comment on above: CENTRAL 90% REFERENC E RANGES MALE AGE <50 197.44 - 669.58 ng/dL MALE AGE > or = 50 187.72 - 684.19 ng/dL FEMALE AGE <50 8.38 - 35.01 ng/dL FEMALE AGE > or = 50 <7.00 - 35.92 ng/dL Effective as of 11/18/20 Triglyceride [Mass/Vol] 96 mg/dL <199 [facility] Work Phone: Comment on above: The drugs N-Acetylcy steine and Metamizole may falsely depress this assay.Serum Triglycerides Reference Interval Normal <150 mg/dL Borderline high 150 - 199 mg/dL High 200 - 499 mg/dL Very High > or = 500 mg/dL Laboratory - Chemistry and C hemistry - challengeon 02-05-2022 CO2 [Moles/Vol] 24.0 mmol/L 21.0-32.0 [facility] Work Phone: Urea nitrogen/Creatinine [Mass ratio] 21.5 mg/mg 10- [facility] Work Phone: No Panel Informationon 02-05 Estimated GFR (MDRD) Amer 149 mL/min >60 [facility] Work Phone: [phone] Comment on above: GFR Calc Estimated GFR (MDRD) Non-Af Amer 123 mL/min >60 [facility] Work Phone: Comment on above: Non- GFR Calc Thyroid Stimulating Hormone (TSH) 1.71 uIU/mL 0.358-3.74 [facility] Work Phone: [phone] Serum or plasma calcium ai urement (mass/volume)on 02-05-2022 Calcium [Mass/Vol] 8.8 mg/dL 8.5-10.1 [facility] Work Phone: [phone] Serum or plasma cholesterol in HDL measurement (mass/volume)on 02-05-2022 Cholesterol in HDL [Mass/Vol] 49 mg/dL >40 [facility] Work Phone: Comment on above: The drugs N-Acetylcy steine and Metamizole may falsely depress this assay. Reference Range HDL <40 mg/dL Low HDL Cholesterol HDL >or= 60 mg/dL High HDL Cholesterol Serum or plasma cholesterol in VLDL measurement (mass/volume)on 02-05-2022 Cholesterol in VLDL [Mass/Vol] 19 mg/dL 5-40 [facility] Work Phone: Serum or plasma creatinine m easurement (mass/volume)on 02-05-2022 Creatinine [Mass/Vol] 0.70 mg/dL 0.70-1.30 [facility] Work Phone: Comment on above: The validity of the calculated GFR & GFRAA in patients over 70 years has not been determined. Clinical correlation is essential. Serum or plasma low density lipoprotein (LDL) cholesterol measurement (mass/volume)on 02-05-2022 Cholesterol in LDL [Mass/Vol] 107 mg/dL 0-130 [facility] Work Phone: Serum or plasma urea nitroge n measurement (mass/volume)on 02-05-2022 Urea nitrogen [Mass/Vol] 15 mg/dL 7-18 [facility] Work Phone: Thin prep Papanicolaou smear with manual screeningon 02-05-2022 Thin prep Papanicolaou smear with manual screening 8 5-15 [facility] Work Phone: CNPTOUTREACHon 03-20-2019 CNPTOUTREACH Patient Outreach (FAMPWS) EARLE SOLO ([id number]) 1960 M Date Time Provider Department 03/20/19 NIRAJ CELAYA) FAMPWS During your visit today, we recorded the following information about you: Naz Healy RN 03/20/2019 6:14 PM Signed PRIMARY CARE COORDINATION QUICK NOTE Provider Action/FYI Opened in error Patient identified by name and date . Naz Healy RN March 20, 2019 6:14 PM Allergies As of Date: 03/20/2019 Noted Allergy Reaction ANCEF (CEFAZOLIN SODIUM) 01/15/2005 4 - Hives CLINDAMYCIN 05/28/2011 4 - Hives 10 - Anaphylaxis CONTRAST DYE 12/20/2006 4 - Hives KEFLEX (CEPHALEXIN) 02/18/2005 5 - Intolerance LISINOPRIL 03/28/2008 8 - GI Upset Comments: nausea Date Reviewed: 08/31/2013 Reviewed by: Shavon Chadwick RN - Fully Assessed Reason for Visit: Reason For Visit History Recorded Prescriptions as of 03/20/2019 Sig: SERTRALINE 100 MG TABLET Take 1 tablet by mouth once d* ENALAPRIL MALEATE 10 MG TABLET Take 1 tablet by mouth once d* Problem List As Of Date 03/20/2019 Noted Resolved VARICOSE VEINS (LOWER EXTREM) WITH EDEMA(R) [I8*02/18/2005 GENERALIZED ANXIETY DIS [F41.1] 02/14/2007 More... BENIGN HYPERTENSION [I10] 02/14/2007 More... SLEEP APNEA NOS [G47.30] 12/20/2007 More... ALLERGIC RHINITIS NOS [J30.9] 12/20/2007 CALCULUS OF KIDNEY [N20.0] 12/20/2007 MORBID OBESITY [E66.01] 12/20/2007 More... More... Encounter Status:Closed by NAZ HEALY on 03/20/19 [facility] PROGRESSon 03-20-2019 PROGRESS HNO ID: [id number] Author: Niraj Childs ([place]) Service: ? Author Type: Registered Nurse Type: Progress Notes Filed: 03/20/2019 6:14 PM Note Text: PRIMARY CARE COORDINATION QUICK NOTE Provider Action/FYI Opened in error Patient identified by name and date . Naz Healy RN March 20, 2019 6:14 PM Normal [facility] Office Visit: knee painon 10-18-2016 Documentation of current medications (procedure) Done Invalid Interpretation Code [facility] Work Phone: Protein mass conc Done [facility] Work Phone: Tobacco smoking status NHIS Never smoker [facility] Work Phone: Tobacco use CPHS Never smoker Invalid Interpretation Code [facility] Work Phone: Vital Signs Date Time Vital Sign Value Performing Clinician Faci lity 07-18-2024 13:09-0400 Body temperature 98.7 [degF] Dr. Gwyn Nguyễn MD Work Phone: [facility] 07-18-2024 13:09-0400 Diastolic blood pressure 80 mm[Hg] Dr. Gwyn Nguyễn MD Work Phone: [facility] 07-18-2024 13:09-0400 Heart rate 107 /min Dr. Gwyn Nguyễn MD Work Phone: [facility] 07-18-2024 13:09-0400 Respiratory rate 17 /min Dr. Gwyn Nguyễn MD Work Phone: [facility] 07-18-2024 13:09-0400 SaO2% (BldA) [Mass fraction] 94 % Dr. Gwyn Nguyễn MD Work Phone: [facility] 07-18-2024 13:09-0400 Systolic blood pressure 164 mm[Hg] Dr. Gwyn Nguyễn MD Work Phone: [facility] 06-20-2024 13:13-0500 Body temperature 97.6 [degF] Dr. Gwyn Nguyễn MD Work Phone: [facility] 06-20-2024 13:13-0500 Diastolic blood pressure 82 mm[Hg] Dr. Gwyn Nguyễn MD Work Phone: [facility] 06-20-2024 13:13-0500 Heart rate 99 /min Dr. Gwyn Nguyễn MD Work Phone: [facility] 06-20-2024 13:13-0500 SaO2% (BldA) [Mass fraction] 98 % Dr. Gwyn Nguyễn MD Work Phone: [facility] 06-20-2024 13:13-0500 Systolic blood pressure 122 mm[Hg] Dr. Gwyn Nguyễn MD Work Phone: [facility] 06-06-2024 12:57-0500 Body temperature 97.9 [degF] Dr. Gwyn Nguyễn MD Work Phone: [facility] 06-06-2024 12:57-0500 Diastolic blood pressure 82 mm[Hg] Dr. Gwyn Nguyễn MD Work Phone: [facility] 06-06-2024 12:57-0500 Heart rate 98 /min Dr. Gwyn Nguyễn MD Work Phone: [facility] 06-06-2024 12:57-0500 Respiratory rate 17 /min Dr. Gwyn Nguyễn MD Work Phone: [facility] 06-06-2024 12:57-0500 SaO2% (BldA) [Mass fraction] 94 % Dr. Gwyn Nguyễn MD Work Phone: [facility] 06-06-2024 12:57-0500 Systolic blood pressure 138 mm[Hg] Dr. Gwyn Nguyễn MD Work Phone: [facility] 10-18-2016 14:34-0400 BMI (Body Mass Index) 41.47 kg/m2 Maricruz Sandoval LPN [facility] Work Phone: 10-18-2016 14:34-0400 Body Temperature 98 [degF] Maricruz Sandoval LPN [facility] Work Phone: 10-18-2016 14:34-0400 BP Diastolic 74 mm[Hg] Maricruz Sandoval LPN [facility] Work Phone: 10-18-2016 14:34-0400 BP Systolic 117 mm[Hg] Maricruz Sandoval LPN [facility] Work Phone: 10-18-2016 14:34-0400 Height 187.96 cm Maricruz Sandoval LPN [facility] Work Phone: 10-18-2016 14:34-0400 Pulse (Heart Rate) 88 /min Maricruz Sandoval LPN [facility] Work Phone: 10-18-2016 14:34-0400 Pulse Oximetry 97 % Maricruz Sandoval LPN [facility] Work Phone: 10-18-2016 14:34-0400 Respiratory Rate 18 /min Maricruz Sandoval LPN [facility] Work Phone: 10-18-2016 14:34-0400 Weight 146.51 kg Maricruz Sandoval LPN [facility] Work Phone: Encounters Encounter Date Encounter Type Care Provider Facility Start: 09-21-2024 End: 09-21-[address] Gwyn Nguyễn MD Work Phone: [facility] Work Phone: Start: 09-21-2024 End: 09-21-[address] Gwyn Nguyễn MD -Laboratory [place] Work Phone: Start: 09-21-2024 End: 09-21-2024 ambulatory Gwyn Nguyễn Facility:[facility] Start: 07-18-2024 End: 07-18-2024 Patient encounter procedure Willie KELLOGG -[facility] Work Phone: Start: 07-18-2024 End: 07-18-2024 ambulatory Willie KELLOGG Facility:[facility] Start: 06-20-2024 End: 06-20-2024 Patient encounter procedure Willie KELLOGG -[facility] Work Phone: Start: 06-20-2024 End: 06-20-2024 ambulatory Willie KELLOGG Facility:[facility] Start: 06-06-2024 End: 06-06-2024 Patient encounter procedure Willie KELLOGG [facility] Work Phone: Start: 06-06-2024 End: 06-06-2024 ambulatory Willie KELLOGG Facility:[facility] Start: 06-05-2024 End: 06-05-2024 Patient encounter procedure Willie KELLOGG -[facility] Work Phone: Start: 06-05-2024 End: 06-05-2024 ambulatory Willie KELLOGG Facility:[facility] Start: 04-30-2024 End: 04-30-2024 ambulatory Gwyn Nguyễn Facility:[facility] Start: 04-03-2024 End: 04-03-2024 ambulatory Gwyn Nguyễn Facility:[facility] Start: 03-20-2024 End: 03-20-2024 ambulatory Willie KELLOGG Facility:[facility] Start: 03-07-2024 End: 03-07-2024 ambulatory Gwyn Nguyễn Facility:[facility] Start: 02-29-2024 End: 02-29-2024 ambulatory Gwyn Nguyễn Facility:[facility] Start: 02-29-2024 End: 02-29-2024 ambulatory Willie KELLOGG Facility:[facility] Start: 11-28-2023 ambulatory [place] Love Mirza cility:[facility] Start: 11-07-2023 End: 11-07-2023 ambulatory Gwyn Nguyễn Facility:[facility] Start: 10-18-2023 [facility] Start: 08-24-2023 End: 08-24-2023 ambulatory [facility] Work Phone: Start: 08-24-2023 End: 08-24-2023 Patient encounter procedure [facility] Start: 11-26-2022 End: 11-27-2022 [facility] Start: 11-17-2022 End: 11-17-[address] Gwyn Nguyễn Work Phone: [facility] Work Phone: Start: 11-17-2022 End: 11-17-[address] Gwyn Nguyễn Work Phone: [facility] Work Phone: Start: 09-14-2022 End: 09-14-[address] Gwyn Nguyễn Work Phone: [facility] Work Phone: Start: 09-14-2022 End: 09-14-[address] Gwyn Nguyễn Work Phone: [facility]-MRI - [facility] Start: 08-31-2022 End: 08-31-[address] Gwyn Nguyễn Work Phone: [facility] Start: 02-05-2022 End: 02-05-2022 ambulatory [facility] Work Phone: Start: 02-05-2022 End: 02-05-2022 [facility] Start: 07-23-2021 End: 07-23-2021 [facility] Start: 05-27-2021 End: 05-27-2021 Patient encounter procedure [facility]-Laboratory, Specimen Start: 04-29-2021 End: 04-29-2021 [facility] Date Procedure Procedure Detail Performing Clinician Start: 06-05-2024 MRI of joint of lowe r extremity Dr. Gwyn Nguyễn MD Work Phone: Start: 09-14-2022 MRI of joint of lowe r extremity Dr. Gwyn Nguyễn Work Phone: Start: 08-31-2022 X-ray of both feet Dr. Gwyn Nguyễn Work Phone: Start: 07-23-2021 Plain x-ray of elbow Plan of Treatment Date Care Activity Detail Author Start: 06-06-2024 Patient referral [facility] Work Phone: Start: 10-18-2016 End: 10-18-2016 Appointment Appointment [facility] Work Phone: Start: 10-18-2016 End: 10-19-2016 Orthopedic Referral Orthopedic Referral Mino Leung, [address], [address], [place], [address] [facility] Work Phone: Patient referral [facility] Work Phone: Payers Date Payer Category Payer Unknown [id number] 2024 Unknown [id number] 2024 Unknown [id number] 2023 Self-pay [id number] 2023 Unknown [id number] 2016 Unknown [id number] 2006 Private Health Insurance [id number] 1960 Unknown [id number] 2.16.8 [id number] Unknown [id number] 2.16.8 [id number] Unknown [id number] 2.16.8 [id number] Unknown [id number] 2.16.8 [id number] Unknown [id number] 2.16.8 [id number] Unknown [id number] 2.16.8 [id number] Unknown [id number] 2.16.8 [id number] Unknown [id number] 2.16.8 [id number] Unknown [id number] 2.16.8 [id number] Unknown [id number] 2.16.8 [id number] Unknown [id number] 2.16.8 [id number] Unknown [id number] 2.16.8 [id number] Unknown [id number] 2.16.8 [id number] Unknown [id number] 2.16.8 [id number] Unknown [id number] 2.16.8 [id number] Unknown [id number] 2.16.8 [id number] Unknown [id number] 2.16.8 [id number] Social History Date Type Detail Facility Start: 01-09-2021 Tobacco smoking stat [facility] Unknown if ever smoked [facility] Start: 01-09-2021 None [facility] Start: 01-09-2021 Non-smoker [facility] Start: 1960 Sex Assigned At Male [facility] Start: 03-07-2024 Tobacco smoking stat [facility] Never smoked tobacco (finding) [facility] Evaluation note 06-06-2024 Note Date & Type Note Facility 06-06-2024 Evaluation note Diagnosis Onset Date Resolution Lumbar strain acute June 062024 12:51pm Right shoulder strain acute May 12:51pm Strain of right rotator cuff capsule acute June 062024 12:51pm [facility] Work Phone: Discharge summary note 12-08-2022 Note Date & Type Note Facility 12-08-[address] [facility] DISCHARGE SUMMARY NAME ACCOUNT SEX AGE ADMIT DISCHARGE PT MED. RECORD# NUMBER DATE DATE TYPE EARLE SOLO [id number] M 62 11/26/22 11/27/22 2 [id number] ROOM: 311 DATE OF : 1960 ATTENDING PHYSICIAN: Flor Arriola FINAL DIAGNOSIS: Left foot surgery. HOSPITAL COURSE: The patient had undergone Achilles tendon repair with removal of heel spur to the left heel on Tuesday, November 26. Due to comorbidities and concerns of surgical positioning, as well as safety of general anesthesia, it was decided preoperatively that the patient would be safer with spinal anesthesia. That was performed, and the patient was placed on his side during the surgical procedure. With the spinal anesthesia in combination with the patient's body habitus and sleep apnea, it was recommended that the patient be admitted at [facility] overnight for 23 hour observation. The patient was agreeable to that as was family. The patient had done well overnight, and pain was relatively well-controlled. He was able to ambulate with a walking aid the next day. He had done well overnight. The patient was evaluated by me, and the dressing was clean, dry, and intact, so discharge home was recommended. DISCHARGE INSTRUCTIONS/PLAN: The patient will followup in the private office and continue taking Percocet for pain control. He was instructed to keep the dressing clean, dry, and intact and avoid excessive ambulation. He should be strict nonweightbearing to the left foot and call with any concerns. This was discussed with the patient, and nursing staff as well. The patient was discharged home on the morning of November 27, 2022. Dictated By: Flor Arriola DPM 11/29/22 17:36 JOB #: [id number] Transcribed By: am 11/30/22 09:19 Electronically signed by: E-SIGN FLOR ARRIOLA 12/08/22 07:41 Page 1 of 1 EARLE SOLO Discharge Summary [facility] History and physical note 12-08-2022 Note Date & Type Note Facility 12-08-[address] [facility] PREOPERATIVE HISTORY & PHYSICAL NAME ACCOUNT SEX AGE ADMIT DISCHARGE PT MED. RECORD# NUMBER DATE DATE TYPE EARLE SOLO [id number] M [id number] 2 [id number] ROOM: DATE OF : 64 DICTATING PHYSICIAN: Flor Arriola PREOPERATIVE DIAGNOSIS: Painful left heel spur with Achilles tendinosis and superficial tears. PLANNED PROCEDURE: Resection of left heel spur with repair of Achilles tendon and reattachment to the heel. SURGEON: Flor Arriola DPM HISTORY OF PRESENT ILLNESS: The patient is known to me from my private office where he had been treated for several months for Achilles tendon and heel pain of the left foot. All conservative treatments were exhausted, including immobilization, physical therapy, stretching, ice, rest, oral medications, etc. No improvement was seen, and patient wished to proceed with surgical intervention. Risks, complications, alternatives treatments were reviewed in detail, and no guarantees were given. The patient understands the possibility of slow healing and nonhealing as well as possible nerve damage and need for further surgical intervention, as well as recurrence. PAST MEDICAL HISTORY: See chart. ALLERGIES: Keflex. PLAN: Consent was reviewed and signed, and patient will present to [facility] on the morning of 11/26/22 for outpatient surgical intervention. Dictated By: Flor Arriola DPM 11/25/22 17:55 JOB #: [id number] Transcribed By: ew 11/25/22 18:51 Electronically signed by: E-SIGN FLOR ARRIOLA 12/08/22 07:36 Update to H&P: [ ] No changes: I have examined the patient and reviewed the H&P and there are no changes. Page 1 of 2 EARLE SOLO History & Physical EARLE SOLO :1960 [ ] As previously dictated with the following changes: PHYSICIAN SIGNATURE: TIME: DATE: Page 2 of 2 EARLE SOLO History & Physical [facility] SARS-CoV RNA SEEMA+probe Ql (Unsp spec) 04-29-2021 Note Date & Type Note Facility 04-29-2021 SARS-CoV RNA SEEMA+ probe Ql (Unsp spec) [facility] Work Phone: Coronavirus 2019 (SEEMA) April 30, 2021 12:59am Detected Not Detected Patients who have a positive COVID-19 test result may nowhave treatment options. Treatment options are available forpatients with mild to moderate symptoms and forhospitalized patients. Visit our website [email or web address] for resources andinformation.This nucleic acid amplification test was developed and itsperformance characteristics determined by [employer]. Nucleic acid amplification tests include RT-PCR and TMA. This test has not been FDA cleared orapproved. This test has been authorized by FDA under anEmergency Use Authorization (EUA). This test is onlyauthorized for the duration of time the declaration thatcircumstances exist justifying the authorization of theemergency use of in vitro diagnostic tests for detection [id number] virus and/or diagnosis of COVID-19 infectionunder section 564(b)(1) of the Act, 21 U.S.C. 360bbb-3(b)(1), unless the authorization is terminated or revokedsooner.When diagnostic testing is negative, the possibility of afalse negative result should be considered in the contextof a patient's recent exposures and the presence ofclinical signs and symptoms consistent with COVID-19. Anindividual without symptoms of COVID-19 and who is notshedding SARS-CoV-2 virus would expect to have a negative(not detected) result in this assay. Comment on above: Patients who have a positive COVID-19 test result may nowhave treatment options. Treatment options are available forpatients with mild to moderate symptoms and forhospitalized patients. Visit our website [email or web address] for resources andinformation.This nucleic acid amplification test was developed and itsperformance characteristics determined by [employer]. Nucleic acid amplification tests include RT-PCR and TMA. This test has not been FDA cleared orapproved. This test has been authorized by FDA under anEmergency Use Authorization (EUA). This test is onlyauthorized for the duration of time the declaration thatcircumstances exist justifying the authorization of theemergency use of in vitro diagnostic tests for detection [id number] virus and/or diagnosis of COVID-19 infectionunder section 564(b)(1) of the Act, 21 U.S.C. 360bbb-3(b)(1), unless the authorization is terminated or revokedsooner.When diagnostic testing is negative, the possibility of afalse negative result should be considered in the contextof a patient's recent exposures and the presence ofclinical signs and symptoms consistent with COVID-19. Anindividual without symptoms of COVID-19 and who is notshedding SARS-CoV-2 virus would expect to have a negative(not detected) result in this assay. Evaluation note Note Date & Type Note Facility Evaluation note No assessment information availa [facility] Work Phone: Summary Purpose Family History No Family History Records FoundNo Family History Records FoundNo Family History Records Found Advance Directives Advance Directive Response Recorded Date/ Time Living Will Yes January 09, 2021 10:16pm Power of Electronic Device Repairer Yes December 10:16pm Chief Complaint and Reason for Visit Chief Complaint XRAY LEFT ANKLE PAIN Chief Complaint Admit Date STRAIN OF R ROTATOR CUFF CAPSULE uar y 2024 6:33am 1 M [facility] June 06 12:51pm [facility] 2 WEEK F/U June 20, 2024 12:57pm 1 M [facility] July 18, 2024 1:0 5pm Reason for Visit Admit Date Lumbar strain June 06, 2024 12:51pm Right shoulder strain June 06 12:51pm Strain of right rotator cuff capsule Feb ruary 2024 12:51pm Additional Source Comments (unrecognized sect ion and content) No Status Records FoundNo Status Records FoundNo Status Records Found INFORMATION SOURCE (unrecogn ized section and content) DATE CREATED AUTHOR 03/21/2019 [facility] DATE CREATED AUTHOR AUTHOR'S ORGANIZ ATION [facility] DATE CREATED AUTHOR AUTHOR'S ORGANIZ ATION 09/26/[address] [facility] Goals (unrecognized section and content) Goals may be documented in a n alternate sectionGoals may be documented in an alternate sectionGoals may be documented in an alternate sectionGoals may be documented in an alternate sectionGoals may be documented in an alternate sectionGoals may be documented in an alternate section Care Teams (unrecognized sec tion and content) Team Status: Active Member Role Status Dates Dr. Gwyn Nguyễn MD Family Provider Active Dr. Gwyn Nguyễn MD Primary Care Provider Active Team Status: Inactive Member Role Status Dates Dr. Gwyn Nguyễn MD Primary Care Provider Active Dr. Joseph Spencer MD Attending Provider Active Team Status: Inactive Member Role Status Dates Dr. Gwyn Nguyễn MD Primary Care Provider Active Dr. Flor Arriola DPM Attending Provider, Referring Pr ovider Active Team Status: Inactive Member Role Status Dates Dr. Gwyn Nguyễn MD Primary Care Provi velvet, Attending Provider, Referring Provider Active Team Status: Inactive Member Role Status Dates Dr. Gwyn Nguyễn MD Primary Care Provider, Attending Provider Active Team Status: Active Member Role Status Dates Dr. Gwyn Nguyễn MD Primary Care Provider Active Team Status: Inactive Member Role Status Dates Dr. Gwyn Nguyễn MD Primary Care Provider Active Start: June 05, 2024 End: June 05, 2024 BALJINDER Church Attending Provider Active Start: June 05, 2024 End: June 05, 2024 BALJINDER Church Referring Provider Active Start: June 05, 2024 End: June 05, 2024 Team Status: Inactive Member Role Status Dates Dr. Gwyn Nguyễn MD Primary Care Provider Active Start: June 06, 2024 End: June 06, 2024 Dr. Gwyn Nguyễn MD Referring Provider Active Start: June 06, 2024 End: June 06, 2024 BALJINDER Church Attending Provider Active Start: June 06, 2024 End: June 06, 2024 Team Status: Inactive Member Role Status Dates Dr. Gwyn Nguyễn MD Primary Care Provider Active Start: June 20, 2024 End: June 20, 2024 Dr. Gwyn Nguyễn MD Referring Provider Active Start: June 20, 2024 End: June 20, 2024 BALJINDER Church Attending Provider Active Start: June 20, 2024 End: June 20, 2024 Team Status: Inactive Member Role Status Dates Dr. Gwyn Nguyễn MD Primary Care Provider Active Start: July 18, 2024 End: July 18, 2024 Dr. Gwyn Nguyễn MD Referring Provider Active Start: July 18, 2024 End: July 18, 2024 BALJINDER Church Attending Provider Active Start: July 18, 2024 End: July 18, 2024 Team Status: Inactive Member Role Status Dates Dr. Gwyn Nguyễn MD Primary Care Provider Active Start: September 21, 2024 End: September 21, 2024 Dr. Gwyn Nguyễn MD Attending Provider Active Start: September 21, 2024 End: September 21, 2024 Dr. Gwyn Nguyễn MD Referring Provider Active Start: September 21, 2024 End: September 21, 2024 FOR RECORDS PERTAINING TO PATIENTS WHO ARE OR HAVE BEEN ENROLLED IN A CHEMICAL DEPENDENCY/SUBSTANCEABUSE PROGRAM, SOME INFORMATION MAY BE OMITTED. This clinical summary was aggregated from multiple sources. Caution should be exercised in using it in the provision of clinical care. This summary normalizes information from multiple sources, and as a consequence, information in this document may materially change the coding, format and clinical context of patient data. In addition, data may be omitted in some cases. CLINICAL DECISIONS SHOULD BE BASED ON THE PRIMARY CLINICAL RECORDS. [facility] [employer] provides no warranty or guarantee of the accuracy or completeness of information in this document.
[2025-03-28 17:56] LABS: Anion Gap 11 (5-15); BUN 16 mg/dL (4-19); BUN/Creat Ratio 19.6 RATIO (10-20); Calcium,Total 9.6 mg/dL (7.6-11.0); Carbon Dioxide 24.0 mmol/L (21.0-32.0); Chloride 103 mmol/L (98-108); Glucose 131 mg/dL (70-99); Potassium 4.1 mmol/L (3.3-5.1)
== END | disposition home or self-care (01) ==
LOC: MTLAB 13:35
PROVIDERS: PCP Family Medicine
DX: S46.011A Strain of muscle(s) and tendon(s) of the rotator cuff of right shoulder, initial encounter (principal); M75.41 Impingement syndrome of right shoulder
CPT/HCPCS: 36415; 80048